=== PATIENT | female | born 1970 | race Caucasian/White ===

== ENCOUNTER 2017-05-04 15:08 | Inpatient (IN) ==
[2017-05-04] MEDS ORDERED: 0.9 % SODIUM CHLORIDE 1,000 ML IV ONE ×2 (15:37→17:34)
--- NOTE | 2017-05-04 15:41 | Emergency Department Note ---
Wound/Laceration HPI - General Chief Complaint: Wound/Laceration Stated Complaint: Wounds to bilateral feet Time Seen by Provider: 05/04/17 15:14 Source: patient Mode of arrival: wheelchair Limitations: no limitations - History of Present Illness HPI Narrative: 47-year-old female presents with wounds to bilateral ankles. She was sent over from wound care. She has had these wounds for 2 years and they will heal and then restart. She is on rheumatoid medications that suppress her immune system. She was sent over by Dr. Gonzales to be admitted and he wanted to do an MRI of her right foot and a surgical debridement. She denies fever chills. She states she has been feeling well. She states she cannot go for rheumatoid medications due to debilitating rheumatoid arthritis. She is not diabetic - Related Data Home Medications Medication Instructions Recorded Confirmed Diclofenac [Voltaren] 50 mg PO QIDP 02/02/16 05/04/17 Pregabalin [Lyrica] 75 mg PO BID 06/01/16 05/04/17 sulfaSALAzine [Sulfasalazine] 500 mg PO DAILY 06/01/16 05/04/17 HYDROcodone/APAP 10/325MG [[place] 10 mg PO Q4H PRN 08/03/16 05/04/17 10/325Mg] Previous Rx's Medication Instructions Recorded DULoxetine [Cymbalta] 30 mg PO BID capsule 03/10/16 Hydroxychloroquine [Plaquenil] 200 mg PO BID tablet 03/10/16 Allergies Allergy/AdvReac Type Severity Reaction Status Date / Time gentamicin [Gentamicin] Allergy Intermediate Rash Verified 05/04/17 15:14 meperidine [From Demerol] Allergy Intermediate Swelling Verified 05/04/17 15:14 of Lip/Tongue/Throat vancomycin Allergy Intermediate Hives Verified 05/04/17 15:14 morphine AdvReac Unknown Other Verified 05/04/17 15:14 Review of Systems All systems ED: reviewed and negative except as stated. Past Medical History - Past Medical History Medical history: Reports: arthritis Surgical history ED: Reports: no surgical history - Social History Alcohol use: Reports: None Physical Exam right medial ankle shows wound 8.7 cm by 6.5cm with a depth of .3cm left lateral ankle shows 3 lesions that are merging measuring 8.5cm by 4.4 cm with a width of .3cm left medial ankle shows a wound measuring 2.4cm by 2.5cm with a depth of .2cm. Serosanguinous fluid from all of the lesions. Tender to palpation. Normal cap refill distally. Right foot shows erythema distally - General Limitations: no limitations General appearance: alert, in no apparent distress - Head Head exam: atraumatic - Eye Eye exam: Present: normal appearance. Absent: conjunctival injection - Neck Neck exam: Present: normal inspection, full ROM - Chest Chest inspection: Present: normal inspection, symmetric chest wall rise - Respiratory Respiratory exam: Present: normal lung sounds bilaterally - Cardiovascular Cardiovascular exam: Present: regular rate, normal heart sounds - Abdominal Exam Abdominal exam: Present: soft, normal bowel sounds. Absent: tenderness - Neurological Exam Neurological exam: Present: alert, oriented X3 - Psychiatric Psychiatric exam: Present: normal affect, normal mood - Skin Skin exam: Present: warm, dry, intact Course Course Narrative: Dr. Sparks will admit and Dr. Gonzales will consult and do surgery. Vital Signs Temperature 98.2 F 05/04/17 15:08 Pulse Rate 84 05/04/17 15:08 Respiratory Rate 16 05/04/17 15:08 Blood Pressure 125/72 05/04/17 15:08 Pulse Oximetry (%) 96 05/04/17 15:08 Temperature 99.1 F H 05/04/17 17:52 Pulse Rate 84 05/04/17 15:08 Respiratory Rate 16 05/04/17 15:08 Blood Pressure 126/82 05/04/17 17:52 Pulse Oximetry (%) 95 05/04/17 17:52 Wound/Laceration - Lab Data Lab results reviewed: Yes I reviewed the patient's lab results. Result diagrams: 05/04/17 15:10 05/04/17 15:10 Lab Results 05/04/17 05/04/17 05/04/17 Range/Units 15:10 15:10 15:10 WBC 11.2 H (4.5-11.0) K/mcL RBC 5.09 (4.00-5.20) M/mcL Hgb 13.0 (12.0-15.0) g/dL Hct 40.0 (36.0-48.0) % MCV 78.6 L (80.0-100.0) fL MCH 25.5 L (26.0-34.0) pg MCHC 32.4 (31.0-36.0) g/dL RDW 17.3 H (11.5-14.5) % Plt Count 385 (140-440) K/mcL MPV 7.2 L (7.4-10.4) fL Total Counted 100 Seg Neutrophils % 69 (38-78) % Band Neutrophils % Not Reportable Lymphocytes % 26 (15-49) % Monocytes % (Manual) 4 (1-12) % Eosinophils % (Manual) 1 (0-7) % Platelet Estimate Normal (NORMAL) RBC Morphology Abnorm A (NORMAL) Microcytosis 1+ A (NONE SEEN) VBG Lactic Acid 1.2 (0.5-2.2) mmol/L Sodium 138 (133-145) mmol/L Potassium 4.0 (3.3-5.1) mmol/L Chloride 102 (96-108) mmol/L Carbon Dioxide 22 (22-30) mmol/L Anion Gap 14.0 (8-16) BUN 17 (6-20) mg/dl Creatinine 0.5 L (0.6-1.1) mg/dl GFR Calculation 114 Glucose 81 (70-105) mg/dL Calcium 9.5 (8.6-10.4) mg/dl Total Bilirubin < 0.2 (0.0-1.0) mg/dL AST 12 (0-37) U/l ALT 8 (0-40) U/l Alkaline Phosphatase 130 H (39-117) U/L C-Reactive Protein (0.0-0.8) mg/dl Total Protein 7.5 (5.9-8.4) gm/dL Albumin 3.9 (3.2-5.2) gm/dL Globulin 3.6 (2.2-3.7) gm/dL Albumin/Globulin Ratio 1.1 (1.0-2.3) 05/04/17 Range/Units 16:10 WBC (4.5-11.0) K/mcL RBC (4.00-5.20) M/mcL Hgb (12.0-15.0) g/dL Hct (36.0-48.0) % MCV (80.0-100.0) fL MCH (26.0-34.0) pg MCHC (31.0-36.0) g/dL RDW (11.5-14.5) % Plt Count (140-440) K/mcL MPV (7.4-10.4) fL Total Counted Seg Neutrophils % (38-78) % Band Neutrophils % Lymphocytes % (15-49) % Monocytes % (Manual) (1-12) % Eosinophils % (Manual) (0-7) % Platelet Estimate (NORMAL) RBC Morphology (NORMAL) Microcytosis (NONE SEEN) VBG Lactic Acid (0.5-2.2) mmol/L Sodium (133-145) mmol/L Potassium (3.3-5.1) mmol/L Chloride (96-108) mmol/L Carbon Dioxide (22-30) mmol/L Anion Gap (8-16) BUN (6-20) mg/dl Creatinine (0.6-1.1) mg/dl GFR Calculation Glucose (70-105) mg/dL Calcium (8.6-10.4) mg/dl Total Bilirubin (0.0-1.0) mg/dL AST (0-37) U/l ALT (0-40) U/l Alkaline Phosphatase (39-117) U/L C-Reactive Protein 1.5 H (0.0-0.8) mg/dl Total Protein (5.9-8.4) gm/dL Albumin (3.2-5.2) gm/dL Globulin (2.2-3.7) gm/dL Albumin/Globulin Ratio (1.0-2.3) - Radiology Data Radiology results reviewed: Yes I reviewed the patient's radiology results. No evidence of osteomyelitis on X-ray Disposition Pt seen by ANALYTICS CONSULTANT/PA only: Yes Clinical Impression: Wound infection Disposition: Xfer As Inpt ([facility]) Condition: Fair Referrals: Coco Morel MD [Primary Care Provider] -
[2017-05-04 16:38] LABS: Mean Cell Volume 78.6 fL (80.0-100.0); Mean Corpuscular HGB Conc 32.4 g/dL (31.0-36.0); Mean Corpuscular Hemoglobin 25.5 pg (26.0-34.0); Platelet Count 385 K/mcL (140-440); RBC 5.09 M/mcL (4.00-5.20); Red Cell Distribution Width 17.3 % (11.5-14.5)
[2017-05-04 16:58] LABS: ALT/SGPT 8 U/l (0-40); Albumin 3.9 gm/dL (3.2-5.2); Albumin/Globulin Ratio 1.1 (1.0-2.3); Alkaline Phosphatase 130 U/L (39-117); Blood Urea Nitrogen 17 mg/dl (6-20)
[2017-05-04 17:04] LABS: Eosinophils % (Manual) 1 % (0-7); Lymphocytes % 26 % (15-49); Monocytes % (Manual) 4 % (1-12); Platelet Estimate NORMAL (NORMAL); RBC Morphology ABNORM (NORMAL); Segmented Neutrophils % 69 % (38-78)
--- NOTE | 2017-05-04 17:11 | XRay Report ---
CLINICAL INFORMATION: Left ankle wound COMPARISON: None. FINDINGS: There is mild diffuse osteoporosis. No specific radiographic evidence of osteomyelitis. Ankle mortise is unremarkable. The talocalcaneal joint is quite narrowed - the possibility of talocalcaneal coalition not excluded. There is mild periarticular soft tissue swelling IMPRESSION: No radiographic evidence for osteomyelitis. Other chronic findings - as described Interpreted and Authenticated by: Felipe Eng 05/04/17
--- NOTE | 2017-05-04 17:13 | XRay Report ---
CLINICAL INFORMATION: Cellulitis evaluate for osteomyelitis COMPARISON: None. FINDINGS: There is no specific radiographic evidence for osteomyelitis. There is solid fusion between the medial cuneiform and navicular and also within the navicular and the cuboid. Mild hallux valgus and metatarsus abductus deformity is noted. There are hammertoe deformities of the second through fifth digits. Moderate degenerative change in the MTT and second through fifth interphalangeal joints. Mild diffuse soft tissue swelling noted particularly the forefoot and midfoot IMPRESSION: No significant radiographic evidence of osteomyelitis. Forefoot and midfoot soft tissue swelling may indicate cellulitis. Other chronic findings as described Interpreted and Authenticated by: Felipe Eng 05/04/17
[2017-05-04] MEDS ORDERED: HYDROmorphone 2 MG/ML SYRINGE IV PRN (17:16)
[2017-05-04] MEDS ORDERED: ONDANSETRON 4 MG/2 ML VIAL IV ONE (17:16)
--- NOTE | 2017-05-04 17:22 | XRay Report ---
CLINICAL INFORMATION: Right ankle evaluate for osteomyelitis COMPARISON: None. FINDINGS: There are no significant radiographic evidence of osteomyelitis or other focal osseous lesion. Mild degenerative changes noted in the ankle mortise and talocalcaneal joint. There is mild diffuse soft tissue swelling. Dystrophic calcification overlies the medial malleolus IMPRESSION: . No plain film evidence for osteomyelitis. Degenerative change Interpreted and Authenticated by: Felipe Eng 05/04/17
--- NOTE | 2017-05-04 18:53 | Internal Med History&Physical ---
Medical - H&P: [facility] Patient information: Note initiated : 05/04/17 at 6:50 pm Service Date, if different from initiated Date: [] Patient: Maria Luisa Torres a 47 y/o F admitted on for Wounds to bilateral feet. Chief Complaint: [] Chief complaint: nonhealing bilateral lower extremity wounds History of present illness: Ms. Torres is a 47 year old F who was referred from Dr. Will's clinic with non-healing bilateral ankle ulcers/cellulitis and swelling right more pronounced than left. Patient has had nonhealing ulceration over the last couple of years that has intermittently worsened despite regular wound care. she clearly denies recent trauma. During today's evaluation here was significant cellulitis/ulceration involving the right ankle and therefore patient was directed by wound care physician to be admitted under hospitalist service for antibioticsfurther imaging while she would undergo debridement and wound care management as per Dr. Will. Patient carries history of rheumatoid arthritis and is currently on Platinol/sulfasalazine. Initial workup in the ED was essentially unremarkable with white count at 11.3. mRI foot was ordered at the time of Examination patient is alert oriented. She as able to provide most of the history. Denies groin pain/ swelling. pain and swelling located around both ankles. She is able to bear weight. She denies fevers, shaking chills, diarrhea, dysuria or joint swelling. She denies recent medication changes. REVIEW OF SYSTEMS a 10 point system was performed and is negative except was discussed above Medical - H&P: PMH Medical history: anxiety disorder rheumatoid arthritis Nonhealing lower extremity wounds neuropathy Degenerative joint disease Medical - H&P: Meds Home Medications Medication Instructions Recorded Confirmed Type Diclofenac [Voltaren] 50 mg PO QIDP 02/02/16 05/04/17 History DULoxetine [Cymbalta] 30 mg PO BID capsule 03/10/16 05/04/17 Rx Hydroxychloroquine [Plaquenil] 200 mg PO BID tablet 03/10/16 05/04/17 Rx Pregabalin [Lyrica] 75 mg PO BID 06/01/16 05/04/17 History sulfaSALAzine [Sulfasalazine] 500 mg PO DAILY 06/01/16 05/04/17 History HYDROcodone/APAP 10/325MG [[place] 10 mg PO Q4H PRN 08/03/16 05/04/17 History 10/325Mg] Allergies Allergy/AdvReac Type Severity Reaction Status Date / Time gentamicin [Gentamicin] Allergy Intermediate Rash Verified 05/04/17 15:14 meperidine [From Demerol] Allergy Intermediate Swelling Verified 05/04/17 15:14 of Lip/Tongue/Throat vancomycin Allergy Intermediate Hives Verified 05/04/17 15:14 morphine AdvReac Unknown Other Verified 05/04/17 15:14 Medical - H&P: Exam - Constitutional Vitals: Temp Pulse Resp BP Pulse Ox 99.1 F H 84 16 126/82 95 05/04/17 17:52 05/04/17 15:08 05/04/17 15:08 05/04/17 17:52 05/04/17 17:52 General appearance: cooperative, obese Exam: pupils symmetric reactive oral cavity dry no ear discharge Head normocephalic atraumatic Neck no lymphadenopathy S1-S2 rate and rhythm No murmur chest clear to auscultation Abdomen soft nontender lower extremity examination bilateral lower extremity Ankle lesion including right medial and left medial and lateral Malleolus ulceration with purulent exudate /surrounding erythema and induration. Right greater than left skin no other suspicious lesion Psych alert cooperative neuro nonfocal on limited neuro exam Medical - H&P: Reslt - Labs CBC & Chem 7: 05/04/17 15:10 05/04/17 15:10 Labs: Short CBC 05/04/17 Range/Units 15:10 WBC 11.2 H (4.5-11.0) K/mcL Hgb 13.0 (12.0-15.0) g/dL Hct 40.0 (36.0-48.0) % Plt Count 385 (140-440) K/mcL BMP 05/04/17 15:10 Sodium 138 Potassium 4.0 Chloride 102 Carbon Dioxide 22 BUN 17 Creatinine 0.5 L Glucose 81 Calcium 9.5 Liver Function 05/04/17 Range/Units 15:10 Total Bilirubin < 0.2 (0.0-1.0) mg/dL AST 12 (0-37) U/l ALT 8 (0-40) U/l Alkaline Phosphatase 130 H (39-117) U/L Albumin 3.9 (3.2-5.2) gm/dL Medical - H&P: A/P (1) Diabetic ulcer of ankle Current visit: Yes Status: Acute * Non Helaing ulcer bilateral ankle/malleolus Rt>Left. Wound care consulted. Continue antibiotic coverage * right ankle cellulitis-ntibiotic coverage * history of rheumatoid arthritis continue Hydroxychloroquine/Sulfasalazine * Neuropathy continue Lyrica/[place] * pain management on as needed opioids * full code plan * Wound care consult * antibiotic coverage * mRI right footankle * pre-existing medical condition management as above
[2017-05-04] MEDS ORDERED: ACETAMINOPHEN 325 MG TABLET PO PRN (19:09)
[2017-05-04] MEDS ORDERED: POTASSIUM CHLORIDE 20 MEQ PACKET PO PRN (19:09)
[2017-05-04] MEDS ORDERED: ACETAMINOPHEN 1,000 MG/100 ML BOTTLE IV PRN (19:09)
[2017-05-04] MEDS ORDERED: ONDANSETRON 4 MG/2 ML VIAL IV PRN (19:09)
[2017-05-04] MEDS ORDERED: DEXTROSE 50% 50 ML VIAL IV PRN (19:09)
[2017-05-04] MEDS ORDERED: DEXTROSE 31 GM ORAL.SUSP PO PRN (19:09)
[2017-05-04] MEDS ORDERED: MAGNESIUM SULFATE 2 GM/50 ML BAG IV PRN (19:09)
[2017-05-04] MEDS ORDERED: traZODone HCL 50 MG TABLET PO PRN (19:09)
[2017-05-04] MEDS ORDERED: MAGNESIUM HYDROXIDE 30 ML ORAL.SUSP PO PRN (19:09)
[2017-05-04] MEDS: 0.9 % SODIUM CHLORIDE 1,000 ML IV SCH (19:10)
[2017-05-04] MEDS ORDERED: PIPERACILLIN SODIUM/TAZOBACTAM 3.375 GM VIAL IV ONE (22:52)
[2017-05-04] MEDS: PIPERACILLIN SODIUM/TAZOBACTAM 3.375 GM in DEXTROSE 5% IN WATER 50 ML IV SCH (22:52)
[2017-05-04] MEDS: HYDROcodone/APAP 5/325MG TABLET PO PRN (22:55)
[2017-05-04] MEDS: SENNOSIDES/DOCUSATE SODIUM 1 TAB TABLET PO SCH (22:55)
[2017-05-04] MEDS: HYDROXYCHLOROQUINE 200 MG TABLET PO SCH (22:57)
[2017-05-04] MEDS: PREGABALIN 75 MG CAPSULE PO SCH (22:57)
[2017-05-04] MEDS: INSULIN LISPRO 1 UNIT/0.01 ML UNIT SQ SCH (22:57)
[2017-05-04] MEDS: 0.9 % SODIUM CHLORIDE 10 ML SYRINGE IV SCH (22:58)
[2017-05-04] MEDS: DOCUSATE SODIUM 100 MG CAPSULE PO SCH (23:04)
[2017-05-04] MEDS: DULoxetine 30 MG CAPSULE PO SCH (23:04)
[2017-05-04] MEDS: HEPARIN 5,000 UNIT/ML VIAL SQ SCH (23:04)
[2017-05-05] MEDS: HYDROmorphone 2 MG/ML SYRINGE IV PRN ×6 (00:21→19:50)
[2017-05-05] MEDS: PIPERACILLIN SODIUM/TAZOBACTAM 3.375 GM in DEXTROSE 5% IN WATER 50 ML IV SCH ×4 (02:27→19:52)
[2017-05-05] MEDS: 0.9 % SODIUM CHLORIDE 10 ML SYRINGE IV SCH ×3 (06:00→21:45)
[2017-05-05 06:34] LABS: Mean Cell Volume 79.6 fL (80.0-100.0); Mean Corpuscular HGB Conc 32.6 g/dL (31.0-36.0); Platelet Count 361 K/mcL (140-440); RBC 4.66 M/mcL (4.00-5.20); Red Cell Distribution Width 17.2 % (11.5-14.5)
[2017-05-05 07:25] LABS: ALT/SGPT 7 U/l (0-40); Albumin 3.6 gm/dL (3.2-5.2); Albumin/Globulin Ratio 1.1 (1.0-2.3); Alkaline Phosphatase 118 U/L (39-117); Bilirubin,Direct < 0.2 mg/dL (0.0-0.3); Blood Urea Nitrogen 16 mg/dl (6-20); Gamma Glutamyl Transpeptidase 19 U/L (5-36); Magnesium 1.8 mg/dL (1.6-2.5); Uric Acid 2.6 mg/dL (2.5-8.0)
[2017-05-05 07:30] LABS: Anisocytosis 1+ (NONE SEEN); Band Neutrophils % 1 % (0-10); Eosinophils % (Manual) 4 % (0-7); Hypochromasia 1+ (NONE SEEN); Lymphocytes % 32 % (15-49); Monocytes % (Manual) 8 % (1-12); Platelet Estimate NORMAL (NORMAL); RBC Morphology ABNORM (NORMAL); Segmented Neutrophils % 55 % (38-78)
[2017-05-05] MEDS: INSULIN LISPRO 1 UNIT/0.01 ML UNIT SQ SCH ×2 (09:17→14:23)
[2017-05-05] MEDS ORDERED: LORazepam 2 MG/ML VIAL IV ONE (12:21)
--- NOTE | 2017-05-05 12:42 | Internal Med Progress Note ---
Medical - PN: Subj Patient information: Note initiated : 05/05/17 at 12:39 pm Service Date, if different from initiated Date: [] Patient: Maria Luisa Torres a 47 y/o F admitted on 05/04/17 for Non-Healing Ulcer Bilateral Ankle. Chief Complaint: [] Interval history: 05/04-Ms. Torres is a 47 year old F who was referred from Dr. Will's clinic with non-healing bilateral ankle ulcers/cellulitis and swelling right more pronounced than left. Patient has had nonhealing ulceration over the last couple of years that has intermittently worsened despite regular wound care. she clearly denies recent trauma. During today's evaluation here was significant cellulitis/ulceration involving the right ankle and therefore patient was directed by wound care physician to be admitted under hospitalist service for antibioticsfurther imaging while she would undergo debridement and wound care management as per Dr. Will. Patient carries history of rheumatoid arthritis and is currently on Platinol/sulfasalazine. Initial workup in the ED was essentially unremarkable with white count at 11.3. mRI foot was ordered at the time of Examination patient is alert oriented. She as able to provide most of the history. Denies groin pain/ swelling. pain and swelling located around both ankles. She is able to bear weight. She denies fevers, shaking chills, diarrhea, dysuria or joint swelling. She denies recent medication changes. 05/05- atient doing well. No overnight events. No concerns expressed per staff all per patient. No fever chills or d pain. wound management ongoing. Debridement today. On antibiotic coverage. Denies. on regular diet. - Constitutional Vitals: Vital Signs Temp Pulse Resp BP Pulse Ox 97.5 F 69 16 126/74 94 05/05/17 08:00 05/05/17 07:42 05/05/17 08:00 05/05/17 08:00 05/05/17 08:00 Period Temp Pulse Resp BP Sys/[place] Pulse Ox Last 24 Hr 97.0 F-97.8 F 69-70 16-18 120-131/68-77 94-98 Intake and Output 05/04/17 05/05/17 05/05/17 21:59 05:59 13:59 Intake Total 350 / 350 Output Total 452 / 452 Balance -102 / -102 Weight 201 lb 3.2 oz Intake & Output: Intake & Output 05/04/17 05/05/17 05/05/17 21:59 05:59 13:59 Intake Total 350 / 350 Output Total 452 / 452 Balance -102 / -102 Weight 201 lb 3.2 oz Intake: IV 50 / 50 Zosyn 3.375 gm In 50 / 50 Dextrose 5% in Water 50 ml @ 100 mls/hr IV Q6H [facility] Rx#:[id number] Oral 300 / 300 Output: Void Amount 450 / 450 # of times incontinent of 2 / 2 urine General appearance: cooperative, no acute distress Exam: lert and oriented nonlabored breathing Nondistended abdomen No pallor Bilateral lower extremity ankle cellulitis/ulceration wrapped in sterile dressing Medical - PN: Obj Da - Labs CBC & Chem 7: 05/05/17 05:25 05/05/17 05:25 Labs: Abnormal Lab Results 05/05/17 05/05/17 05:25 05:25 MCV 79.6 L RDW 17.2 H MPV 7.1 L RBC Morphology Abnorm A Hypochromasia 1+ A Anisocytosis 1+ A Microcytosis 1+ A Alkaline Phosphatase 118 H Meds: Medications Acetaminophen (Tylenol) 650 mg PO Q4-6HP PRN PRN Reason: PAIN/FEVER > 101 Hydrocodone Bitart/Acetaminophen ([place] 5/325mg) 0 tab PO Q4HP PRN PRN Reason: Pain Last Admin: 05/04/17 22:55 Dose: 2 tab Dextrose (Dextrose 50%) 0 ml IV UD PRN PRN Reason: Hypoglycemia Diagnostic Test (Pha) (Accu-Chek) 1 each FS ACHS [facility] Last Admin: 05/05/17 07:09 Dose: 1 each Docusate Sodium (Colace) 100 mg PO BID [facility] Last Admin: 05/04/17 23:04 Dose: 100 mg Duloxetine HCl (Cymbalta) 30 mg PO BID [facility] Last Admin: 05/04/17 23:04 Dose: 30 mg Glucose (Insta-Glucose) 15 gm PO PRN PRN PRN Reason: Hypoglycemia Heparin Sodium (Porcine) (Heparin) 5,000 unit SQ Q12 [facility] Last Admin: 05/04/17 23:04 Dose: 5,000 unit Hydromorphone HCl (Dilaudid) 0 mg IV Q4HP PRN PRN Reason: Pain Last Admin: 05/05/17 11:03 Dose: 0.5 mg Hydroxychloroquine Sulfate (Plaquenil) 200 mg PO BID [facility] Last Admin: 05/04/17 22:57 Dose: 200 mg Magnesium Sulfate (Magnesium Sulfate) 2 gm in 50 mls @ 50 mls/hr IV UD PRN PRN Reason: MG = or < 1.7 Acetaminophen (Ofirmev) 1,000 mg in 100 mls @ 200 mls/hr IV Q6HP PRN PRN Reason: PAIN/FEVER > 101 Piperacillin Sod/Tazobactam (Sod 3.375 gm/ Dextrose) 50 mls @ 100 mls/hr IV Q6H [facility] Last Admin: 05/05/17 06:32 Dose: 100 mls/hr Sodium Chloride (Sodium Chloride 0.9%) 1,000 mls @ 20 mls/hr IV .Q24H [facility] Last Admin: 05/04/17 19:10 Dose: 20 mls/hr Insulin Human Lispro (Humalog) 0 unit SQ ACHS JANE PRN Reason: Protocol Last Admin: 05/05/17 09:17 Dose: Not Given Iron Carb/Multivit/User Experience Lead/Folic Acid (Multivitamin W/Minerals) 1 tab PO DAILY [facility] Magnesium Hydroxide (Milk Of Magnesia) 30 ml PO HSP PRN PRN Reason: Constipation Ondansetron HCl (Zofran) 4 mg IV Q4-6HP PRN PRN Reason: Nausea And Vomiting Potassium Chloride (Klor-Con) 40 meq PO DAILYP PRN PRN Reason: K+ < 3.5 Pregabalin (Lyrica) 75 mg PO BID [facility] Last Admin: 05/04/17 22:57 Dose: 75 mg Senna/Docusate Sodium (Senna Plus Tablet) 1 tab PO HS [facility] Last Admin: 05/04/17 22:55 Dose: 1 tab Sodium Chloride (Saline Flush) 10 ml IV Q8 [facility] Last Admin: 05/05/17 06:00 Dose: Not Given Sulfasalazine (Sulfasalazine) 500 mg PO DAILY [facility] Trazodone HCl (Desyrel) 50 mg PO HSP PRN PRN Reason: Insomnia Medical - PN: A/P - Time Spent With Patient Total time spent is greater than 50% in coordination of care (as documented) at patient's floor/unit and/or counseling patient: 25 - 35 minutes (1) Diabetic ulcer of ankle Status: Acute Assessment and plan: * Non Helaing bilateral ankle/malleolus ulceration Rt>Left. Wound care managing. on antibiotic coverage * right ankle cellulitis- MRI bilateral ankle to rule out osteoporosis. Continue antibiotic coverage * history of rheumatoid arthritis continue Hydroxychloroquine/Sulfasalazine * Neuropathy continue Lyrica/cymbalta * pain management on as needed opioids * full code plan * Wound care per Dr. Will * MRI bilateral lower ankle * continue antibiotic coverage * pre-existing medical condition management as above Current Visit: Yes Medical - PN: Qual - VTE Deep Vein Thrombosis/Pulmonary Embolism Present on Admission: No
[2017-05-05] MEDS: sulfaSALAzine 500 MG TABLET PO SCH (13:51)
[2017-05-05] MEDS: PREGABALIN 75 MG CAPSULE PO SCH ×2 (13:51→21:44)
[2017-05-05] MEDS: DOCUSATE SODIUM 100 MG CAPSULE PO SCH ×2 (13:51→21:44)
[2017-05-05] MEDS: HYDROXYCHLOROQUINE 200 MG TABLET PO SCH ×2 (13:51→21:45)
[2017-05-05] MEDS: DULoxetine 30 MG CAPSULE PO SCH ×2 (13:51→21:44)
[2017-05-05] MEDS: MULTIVIT,THER IRON,CA,FA & MIN 1 TABLET PO SCH (13:51)
[2017-05-05] MEDS: HEPARIN 5,000 UNIT/ML VIAL SQ SCH ×2 (14:23→21:45)
--- NOTE | 2017-05-05 14:41 | Magnetic Resonance Report ---
CLINICAL INFORMATION: History of rheumatoid arthritis on steroids. Nonhealing wound TECHNIQUE: Axial T1 T1, post Magnevist fat saturation T2 proton density, coronal T1 pre and post Magnevist T2 proton density STIR and sagittal proton density post Magnevist images were acquired. FINDINGS: The marrow signal is entirely unremarkable throughout the ankle and hindfoot. There is no evidence of osteomyelitis. Joint spaces are normal with alignment without arthritic change. Tendons and sheaths are normal. There is moderate cellulitic changes in the subcutaneous fat throughout the ankle and hindfoot. There is no soft tissue abscess and no involvement of the muscular compartments. IMPRESSION: Moderate cellulitis show the ankle and hindfoot. No evidence of abscess, osteomyelitis or arthritis. Interpreted and Authenticated by: Felipe Eng 05/05/17
[2017-05-05] MEDS ORDERED: INSULIN LISPRO 1 UNIT/0.01 ML UNIT SQ SCH (14:48)
--- NOTE | 2017-05-05 14:50 | Magnetic Resonance Report ---
CLINICAL INFORMATION: History of rheumatoid arthritis on steroids with nonhealing wound to evaluate for abscess and osteomyelitis TECHNIQUE: Axial T1, T1 post Magnevist T2 proton density coronal T1 post Magnevist (STIR sagittal proton density post Magnevist images were acquired FINDINGS: The marrow signal is entirely unremarkable throughout the ankle and hindfoot without evidence of osteomyelitis. Joint spaces are normal with alignment without evidence of inflammatory arthritis. There is a split tear of the peroneal longus tendon. The peroneal brevis and other tendons and sheaths are unremarkable. There is moderate cellulitis predominantly in the medial subcutaneous soft tissues the ankle and hindfoot. No evidence of abscess. No definite involvement of the muscle and fascial planes. IMPRESSION: Cellulitis within the ankle and hindfoot predominantly medially. There is no evidence of soft tissue abscess, myositis/fasciitis and no evidence of osteomyelitis. Split tear of the peroneus longus tendon is likely chronic Interpreted and Authenticated by: Felipe Eng 05/05/17
--- NOTE | 2017-05-05 15:32 | General Surgery Consult Note ---
History of Present Illness Patient information: Note initiated : 05/05/17 at 3:21 pm Service Date, if different from initiated Date: [] Patient: Maria Luisa Torres 47 y/o F admitted on 05/04/17 for Non-Healing Ulcer Bilateral Ankle. Chief Complaint: [] Consult date: 05/05/17 Reason for consult: other (Cellulitis both legs Infected wounds chronic VLU: R > L lower half) Requesting physician: Jasper Braxton History of present illness: Patient well known to staff at [facility] and Wound Center / [facility]. 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 Past h/o refractory rheumatoid arthritis and treatment with immunosuppressants and steroids. She was evaluated in wound clinic and noted to have significant interval changes , with SEPSIS due to csssi and cellulitis both lower legs and right ankle and plantar foot, with inability to bear weight on right foot. Patient had fever of over 102 F, Chills and foul drainage from the wounds, especially large VLU right medial ankle, covered with thick yellow / green slough. She was sent to ER for evaluation and management. Started on local wound care and IV antibiotics. Today, she had MRI of both ankles and feet and lower legs. I discussed findings with Dr. Henry Radiology. There is extensive soft tissue cellulitis especially right foot and ankle area. NO OSTEO / NO BONE OR JOINT INVOLVEMENT. Medications and Allergies Home Medications Medication Instructions Recorded Confirmed Type Diclofenac [Voltaren] 50 mg PO QIDP 02/02/16 05/04/17 History DULoxetine [Cymbalta] 30 mg PO BID capsule 03/10/16 05/04/17 Rx Hydroxychloroquine [Plaquenil] 200 mg PO BID tablet 03/10/16 05/04/17 Rx Pregabalin [Lyrica] 75 mg PO BID 06/01/16 05/04/17 History sulfaSALAzine [Sulfasalazine] 500 mg PO DAILY 06/01/16 05/04/17 History HYDROcodone/APAP 10/325MG [[place] 10 mg PO Q4H PRN 08/03/16 05/04/17 History 10/325Mg] Allergies Allergy/AdvReac Type Severity Reaction Status Date / Time gentamicin [Gentamicin] Allergy Intermediate Rash Verified 05/04/17 15:14 meperidine [From Demerol] Allergy Intermediate Swelling Verified 05/04/17 15:14 of Lip/Tongue/Throat vancomycin Allergy Intermediate Hives Verified 05/04/17 15:14 morphine AdvReac Unknown Other Verified 05/04/17 15:14 Exam Temp Pulse Resp BP Pulse Ox 97.5 F 69 16 126/74 94 05/05/17 08:00 05/05/17 07:42 05/05/17 08:00 05/05/17 08:00 05/05/17 08:00 - General physical appearance well developed, well nourished, no distress, moderate distress, chronically ill - Eyes PERRL, normal ocular movement - ENT normal pinna, normal nares, normal mucosa, no congestion, other (edentolous) - Head Head exam IM: Present: atraumatic, normal inspection, normocephalic - Neck no masses, no bruits, trachea midline, no venous distension - Cardiovascular Cardiovascular exam IM: Present: normal rate and rhythm - Respiratory normal expansion, normal respiratory effort, clear to auscultation - Abdomen Abdomen: Present: soft, non tender, bowel sounds - Integumentary Present: other (See HPI above Cellulitis both lower legs, infected necrotic slough VLU right . left, foul odor) - Neurologic Present: normal coordination, normal sensation - Musculoskeletal Present: normal gait, other (Currently NWB right foot and ankle. ) - Psychiatric Present: oriented to time, oriented to person, oriented to place, speech is normal, memory intact Results - Labs 05/05/17 05:25 05/05/17 05:25 Abnormal lab results 05/05/17 05/05/17 Range/Units 05:25 05:25 MCV 79.6 L (80.0-100.0) fL RDW 17.2 H (11.5-14.5) % MPV 7.1 L (7.4-10.4) fL RBC Morphology Abnorm A (NORMAL) Hypochromasia 1+ A (NONE SEEN) Anisocytosis 1+ A (NONE SEEN) Microcytosis 1+ A (NONE SEEN) Alkaline Phosphatase 118 H (39-117) U/L Diabetes panel 05/05/17 Range/Units 05:25 Sodium 139 (133-145) mmol/L Potassium 3.7 (3.3-5.1) mmol/L Chloride 103 (96-108) mmol/L Carbon Dioxide 22 (22-30) mmol/L BUN 16 (6-20) mg/dl Creatinine 0.6 (0.6-1.1) mg/dl Glucose 82 (70-105) mg/dL Calcium 9.1 (8.6-10.4) mg/dl AST 11 (0-37) U/l ALT 7 (0-40) U/l Alkaline Phosphatase 118 H (39-117) U/L Total Protein 6.8 (5.9-8.4) gm/dL Albumin 3.6 (3.2-5.2) gm/dL Triglycerides 148 (<150) mg/dl Calcium panel 05/05/17 Range/Units 05:25 Calcium 9.1 (8.6-10.4) mg/dl Phosphorus 3.4 (2.7-4.5) mg/dL Albumin 3.6 (3.2-5.2) gm/dL Pituitary panel 05/05/17 Range/Units 05:25 Sodium 139 (133-145) mmol/L Potassium 3.7 (3.3-5.1) mmol/L Chloride 103 (96-108) mmol/L Carbon Dioxide 22 (22-30) mmol/L BUN 16 (6-20) mg/dl Creatinine 0.6 (0.6-1.1) mg/dl Glucose 82 (70-105) mg/dL Calcium 9.1 (8.6-10.4) mg/dl Adrenal panel 05/05/17 Range/Units 05:25 Sodium 139 (133-145) mmol/L Potassium 3.7 (3.3-5.1) mmol/L Chloride 103 (96-108) mmol/L Carbon Dioxide 22 (22-30) mmol/L BUN 16 (6-20) mg/dl Creatinine 0.6 (0.6-1.1) mg/dl Glucose 82 (70-105) mg/dL Calcium 9.1 (8.6-10.4) mg/dl Total Bilirubin 0.2 (0.0-1.0) mg/dL AST 11 (0-37) U/l ALT 7 (0-40) U/l Alkaline Phosphatase 118 H (39-117) U/L Total Protein 6.8 (5.9-8.4) gm/dL Albumin 3.6 (3.2-5.2) gm/dL All other labs normal. Assessment and Plan (1) Sepsis affecting skin SPOKE AT LENGTH with patient, and nursing staff. Indication for surgery , risk, benefits, complications discussed. All questions answered. Patient agrees to proceed with surgery as scheduled. Status: Acute Priority: High Comment: FOr OR debridement and deep tissue cultures and biopsies. (2) Wound infection Status: Acute Priority: High Comment: OR debridement, VERSAJET lavage and irrigation. (3) Arthritis, rheumatoid Status: Chronic Priority: Medium Qualifiers: Rheumatoid arthritis location: foot Laterality: bilateral (4) Depression Status: Acute
[2017-05-05 16:39] LABS: HCG,Serum NEGATIVE <10.0 mIU/Ml (<10)
[2017-05-05 17:56] LABS: Appearance,Urine HAZY; Bilirubin,Urine NEG (NEG); Color,Urine YELLOW; Glucose,Urine (UA) NEGATIVE (NEG); Leukocyte Esterase,Urine NEG /uL (NEG); Nitrate,Urine NEG (NEG); Protein,Urine NEG (NEG); Specific Gravity,Urine 1.011 (1.000-1.035); Urine Blood NEG mg/dL (<0.03); Urobilinogen,Urine NEG (NEG)
[2017-05-05] MEDS ORDERED: ONDANSETRON 4 MG/2 ML VIAL IV ONE (18:10)
[2017-05-05] MEDS ORDERED: KETAMINE 100 MG/ML ML IV ONE (18:10)
[2017-05-05] MEDS ORDERED: LIDOCAINE HCL/PF 100 MG/5 ML SYRINGE IV ONE (18:10)
[2017-05-05] MEDS ORDERED: GLYCOPYRROLATE 0.2 MG/ML VIAL IV ONE (18:10)
[2017-05-05] MEDS ORDERED: fentaNYL 250 MCG/5 ML VIAL IV ONE (18:10)
[2017-05-05] MEDS ORDERED: DEXAMETHASONE 10 MG/ML VIAL IV ONE (18:10)
[2017-05-05] MEDS ORDERED: PROPOFOL 200 MG/20 ML VIAL IV ONE (18:10)
[2017-05-05] MEDS ORDERED: MIDAZOLAM 2 MG/2 ML VIAL IV ONE (18:10)
[2017-05-05] MEDS ORDERED: GENTAMICIN SULFATE 80 MG/2 ML VIAL IR ONE (18:30)
[2017-05-05] MEDS ORDERED: diphenhydrAMINE 50 MG/ML VIAL IV PRN (18:32)
[2017-05-05] MEDS ORDERED: ONDANSETRON 4 MG/2 ML VIAL IV PRN (18:32)
[2017-05-05] MEDS ORDERED: ePHEDrine 50 MG/ML AMPUL IV PRN (18:32)
[2017-05-05] MEDS ORDERED: IPRATROPIUM/ALBUTEROL 3 ML AMPUL.NEB NEB PRN (18:32)
[2017-05-05] MEDS ORDERED: METHOCARBAMOL 1,000 MG/10 ML VIAL IV PRN (18:32)
[2017-05-05] MEDS ORDERED: FLUMAZENIL 0.1 MG/ML ML IV PRN (18:32)
[2017-05-05] MEDS ORDERED: LACTATED RINGERS 250 ML IV PRN (18:32)
[2017-05-05] MEDS ORDERED: BENZOCAINE/MENTHOL 1 LOZENGE PO PRN (18:32)
[2017-05-05] MEDS ORDERED: fentaNYL 100 MCG/2 ML VIAL IV PRN (18:32)
[2017-05-05] MEDS ORDERED: NALOXONE HCL 0.4 MG/ML VIAL IV PRN (18:32)
[2017-05-05] MEDS ORDERED: LACTATED RINGERS 1,000 ML IV SCH (18:45)
[2017-05-05] MEDS ORDERED: CLINDAMYCIN 600 MG/4 ML VIAL IR ONE (18:51)
[2017-05-05] MEDS ORDERED: BACITRACIN 50,000 UNIT VIAL IR ONE (18:51)
--- NOTE | 2017-05-05 19:18 | Brief Operative Note ---
Date of procedure: 05/05/17 Pre-op diagnosis: Sepsis: Infected leg ulcers bilateral with cellulitis. Post-op diagnosis: same Procedure: Surgical debridement and pulse lavage irrigation and deep tissue cultures Grafts/Implants: No Anesthesia: GLMA Findings: Right medial ankle wound VLU 9 x 5 x0.5 CM Left lateral proximal wound Lower half 5 x3 x0.5 CM Left lateral distal wound Lower half 4 x 2.5 x 0.5 CM Complications: none Surgeon: Zach Will Estimated blood loss (cc): 20 Specimens Removed/Pathology: other Condition: stable Disposition: floor (Procedure well tolerated.)
[2017-05-05] MEDS ORDERED: diphenhydrAMINE 25 MG CAPSULE PO PRN (19:30)
[2017-05-05] MEDS ORDERED: diphenhydrAMINE 50 MG/ML VIAL ONE (19:48)
[2017-05-05] MEDS: 0.9 % SODIUM CHLORIDE 1,000 ML IV SCH (20:00)
[2017-05-05] MEDS: SENNOSIDES/DOCUSATE SODIUM 1 TAB TABLET PO SCH (21:44)
[2017-05-06] MEDS: PIPERACILLIN SODIUM/TAZOBACTAM 3.375 GM in DEXTROSE 5% IN WATER 50 ML IV SCH ×4 (00:32→17:36)
[2017-05-06 06:17] LABS: Mean Cell Volume 78.4 fL (80.0-100.0); Mean Corpuscular HGB Conc 32.5 g/dL (31.0-36.0); Mean Corpuscular Hemoglobin 25.5 pg (26.0-34.0); Platelet Count 363 K/mcL (140-440); RBC 5.02 M/mcL (4.00-5.20); Red Cell Distribution Width 17.3 % (11.5-14.5)
[2017-05-06] MEDS: 0.9 % SODIUM CHLORIDE 10 ML SYRINGE IV SCH ×3 (06:19→20:44)
[2017-05-06 06:56] LABS: ALT/SGPT 7 U/l (0-40); Albumin 3.5 gm/dL (3.2-5.2); Alkaline Phosphatase 120 U/L (39-117); Bilirubin,Direct < 0.2 mg/dL (0.0-0.3); Blood Urea Nitrogen 15 mg/dl (6-20); Gamma Glutamyl Transpeptidase 28 U/L (5-36); Uric Acid 2.1 mg/dL (2.5-8.0)
[2017-05-06 07:30] LABS: Anisocytosis 1+ (NONE SEEN); Hypochromasia 1+ (NONE SEEN); Lymphocytes % 9 % (15-49); Monocytes % (Manual) 3 % (1-12); Platelet Estimate NORMAL (NORMAL); RBC Morphology ABNORM (NORMAL); Segmented Neutrophils % 88 % (38-78)
[2017-05-06] MEDS: MULTIVIT,THER IRON,CA,FA & MIN 1 TABLET PO SCH (08:59)
[2017-05-06] MEDS: PREGABALIN 75 MG CAPSULE PO SCH ×2 (08:59→20:43)
[2017-05-06] MEDS: DULoxetine 30 MG CAPSULE PO SCH ×2 (08:59→20:43)
[2017-05-06] MEDS: sulfaSALAzine 500 MG TABLET PO SCH (09:00)
[2017-05-06] MEDS: HEPARIN 5,000 UNIT/ML VIAL SQ SCH ×2 (09:00→20:43)
[2017-05-06] MEDS: DOCUSATE SODIUM 100 MG CAPSULE PO SCH ×2 (09:00→20:44)
[2017-05-06] MEDS: HYDROXYCHLOROQUINE 200 MG TABLET PO SCH ×2 (09:00→20:43)
[2017-05-06] MEDS: HYDROcodone/APAP 5/325MG TABLET PO PRN ×4 (09:05→20:44)
--- NOTE | 2017-05-06 12:22 | Internal Med Progress Note ---
Medical - PN: Subj Patient information: Note initiated : 05/06/17 at 12:20 pm Service Date, if different from initiated Date: [] Patient: Maria Luisa Torres a 47 y/o F admitted on 05/04/17 for Non-Healing Ulcer Bilateral Ankle. Chief Complaint: [] Interval history: 05/04-Ms. Torres is a 47 year old F who was referred from Dr. Will's clinic with non-healing bilateral ankle ulcers/cellulitis and swelling right more pronounced than left. Patient has had nonhealing ulceration over the last couple of years that has intermittently worsened despite regular wound care. she clearly denies recent trauma. During today's evaluation here was significant cellulitis/ulceration involving the right ankle and therefore patient was directed by wound care physician to be admitted under hospitalist service for antibioticsfurther imaging while she would undergo debridement and wound care management as per Dr. Will. Patient carries history of rheumatoid arthritis and is currently on Platinol/sulfasalazine. Initial workup in the ED was essentially unremarkable with white count at 11.3. mRI foot was ordered at the time of Examination patient is alert oriented. She as able to provide most of the history. Denies groin pain/ swelling. pain and swelling located around both ankles. She is able to bear weight. She denies fevers, shaking chills, diarrhea, dysuria or joint swelling. She denies recent medication changes. 05/05- atient doing well. No overnight events. No concerns expressed per staff all per patient. No fever chills or d pain. wound management ongoing. Debridement today. On antibiotic coverage. Denies. on regular diet. 05/06: Pt seen examined, no acute overnight events, some soreness in her legs, but otherwise no acute issues, tolerating po diet well, Plan of care discussed with Dr Prado who believes patient will need to be here throught the weekend to early next week Pertinent ROS: Denies headache, dizziness Denies chest pain, palpitations Denies cough or shortness of breath Denies abdominal pain, nausea or vomiting. - Constitutional Vitals: Vital Signs Temp Pulse Resp BP Pulse Ox 97.6 F 76 16 120/61 97 05/06/17 11:21 05/06/17 06:18 05/06/17 11:21 05/06/17 11:21 05/06/17 11:21 Period Temp Pulse Resp BP Sys/[place] Pulse Ox Last 24 Hr 96.5 F-99.2 F 67-89 14-20 115-206/61-90 86-100 Intake and Output 05/05/17 05/06/17 05/06/17 21:59 05:59 13:59 Intake Total 597 / 597 50 / 50 120 / 120 Output Total 300 / 300 3 / 3 Balance 297 / 297 47 / 47 119 / 119 Weight 162 lb 9.6 oz Intake & Output: Intake & Output 05/05/17 05/06/17 05/06/17 21:59 05:59 13:59 Intake Total 597 / 597 50 / 50 120 / 120 Output Total 300 / 300 3 Balance 297 / 297 47 / 47 119 / 119 Weight 162 lb 9.6 oz Intake: IV 597 / 597 50 / 50 Sodium Chloride 0.9% 1, 497 / 497 000 ml @ 20 mls/hr IV . Q24H JANE Rx#:[id number] Zosyn 3.375 gm In 100 / 100 50 / 50 Dextrose 5% in Water 50 ml @ 100 mls/hr IV Q6H JANE Rx#:[id number] Oral 120 / 120 Output: Void Amount 300 / 300 # of times incontinent of urine Other: Meal Breakfast Percent of Meal Consumed npo 100% Feeding Ability Independent # Voids 1 Exam: Constitutional; Afebrile, cooperative, alert, not in distress. Eyes- No icterus, , No periorbital swelling Ears- Ext ear normal, hearing normal to conversation. Neck- Midline trachea, supple Respiratory system: Air Entry equal on both sides, No crackles or wheezing, no rhonchi. CVS- Rate rhythm regular, S1,S2 heard, no gallop, no rub. Abdomen- Soft nontender abdomen, no organomegaly, no tenderness, no guarding or rigidity, [employer]- AOOx3, moving all extremities, no gross focal deficit noted. Medical - PN: Obj Da - Labs CBC & Chem 7: 05/06/17 04:45 05/06/17 04:45 Labs: Abnormal Lab Results 05/06/17 05/06/17 05/05/17 04:45 04:45 05:25 MCV 78.4 L MCH 25.5 L RDW 17.3 H MPV Seg Neutrophils % 88 H Lymphocytes % 9 L RBC Morphology Abnorm A Hypochromasia 1+ A Anisocytosis 1+ A Microcytosis 1+ A Creatinine 0.5 L Glucose 135 H Uric Acid 2.1 L Alkaline Phosphatase 120 H 118 H 05/05/17 05:25 MCV 79.6 L MCH RDW 17.2 H MPV 7.1 L Seg Neutrophils % Lymphocytes % RBC Morphology Abnorm A Hypochromasia 1+ A Anisocytosis 1+ A Microcytosis 1+ A Creatinine Glucose Uric Acid Alkaline Phosphatase Meds: Medications Acetaminophen (Tylenol) 650 mg PO Q4-6HP PRN PRN Reason: PAIN/FEVER > 101 Hydrocodone Bitart/Acetaminophen ([place] 5/325mg) 0 tab PO Q4HP PRN PRN Reason: Pain Last Admin: 05/06/17 10:19 Dose: 1 tab Dextrose (Dextrose 50%) 0 ml IV UD PRN PRN Reason: Hypoglycemia Diphenhydramine HCl (Benadryl) 25 mg PO Q6HP PRN PRN Reason: Allergic Symptoms Docusate Sodium (Colace) 100 mg PO BID [facility] Last Admin: 05/06/17 09:00 Dose: Not Given Duloxetine HCl (Cymbalta) 30 mg PO BID [facility] Last Admin: 05/06/17 08:59 Dose: 30 mg Glucose (Insta-Glucose) 15 gm PO PRN PRN PRN Reason: Hypoglycemia Heparin Sodium (Porcine) (Heparin) 5,000 unit SQ Q12 [facility] Last Admin: 05/06/17 09:00 Dose: 5,000 unit Hydromorphone HCl (Dilaudid) 0 mg IV Q4HP PRN PRN Reason: Pain Last Admin: 05/05/17 19:50 Dose: 0.5 mg Hydroxychloroquine Sulfate (Plaquenil) 200 mg PO BID [facility] Last Admin: 05/06/17 09:00 Dose: 200 mg Magnesium Sulfate (Magnesium Sulfate) 2 gm in 50 mls @ 50 mls/hr IV UD PRN PRN Reason: MG = or < 1.7 Acetaminophen (Ofirmev) 1,000 mg in 100 mls @ 200 mls/hr IV Q6HP PRN PRN Reason: PAIN/FEVER > 101 Piperacillin Sod/Tazobactam (Sod 3.375 gm/ Dextrose) 50 mls @ 100 mls/hr IV Q6H [facility] Last Admin: 05/06/17 06:19 Dose: 100 mls/hr Sodium Chloride (Sodium Chloride 0.9%) 1,000 mls @ 20 mls/hr IV .Q24H [facility] Last Admin: 05/05/17 20:00 Dose: 20 mls/hr Iron Carb/Multivit/[place]/Folic Acid (Multivitamin W/Minerals) 1 tab PO DAILY [facility] Last Admin: 05/06/17 08:59 Dose: 1 tab Magnesium Hydroxide (Milk Of Magnesia) 30 ml PO HSP PRN PRN Reason: Constipation Ondansetron HCl (Zofran) 4 mg IV Q4-6HP PRN PRN Reason: Nausea And Vomiting Potassium Chloride (Klor-Con) 40 meq PO DAILYP PRN PRN Reason: K+ < 3.5 Pregabalin (Lyrica) 75 mg PO BID [facility] Last Admin: 05/06/17 08:59 Dose: 75 mg Senna/Docusate Sodium (Senna Plus Tablet) 1 tab PO HS [facility] Last Admin: 05/05/17 21:44 Dose: 1 tab Sodium Chloride (Saline Flush) 10 ml IV Q8 [facility] Last Admin: 05/06/17 06:19 Dose: Not Given Sulfasalazine (Sulfasalazine) 500 mg PO DAILY [facility] Last Admin: 05/06/17 09:00 Dose: 500 mg Trazodone HCl (Desyrel) 50 mg PO HSP PRN PRN Reason: Insomnia Medical - PN: A/P - Time Spent With Patient Total time spent is greater than 50% in coordination of care (as documented) at patient's floor/unit and/or counseling patient: - Narrative A/P Narrative: a/p NOn healing rabia ulcers at ankles with acute Cellutlitis: management as per Dr Prado on IV zosyn for now, vanco discontinued after mrsa neg. MRI of both ankles is neg for osteomyelitis. Rheumatoid arthritis: On hydroxychloroquine as well as sulfasalazine, continue same Neurophaty: On cymbalta and lyrica continue same. pain manggement is prn opiates Full code Regular diet Medical - PN: Qual - VTE Deep Vein Thrombosis/Pulmonary Embolism Present on Admission: No
--- NOTE | 2017-05-06 12:49 | General Surgery Progress Note ---
Subjective Patient reports: no new complaints (Uneventful night. Pain well controlled. Dressings CDI) Narrative: Note initiated : 05/06/17 at 12:47 pm Service Date, if different from initiated Date: [] Patient: Maria Luisa Torres 47 y/o F admitted on 05/04/17 for Non-Healing Ulcer Bilateral Ankle. Chief Complaint: [] Objective Temp Pulse Resp BP Pulse Ox 97.6 F 76 16 120/61 97 05/06/17 11:21 05/06/17 06:18 05/06/17 11:21 05/06/17 11:21 05/06/17 11:21 AVSS. No changes SAM. Underwent wallow study at bedside. Ordered by Hospitalist. NO defects noted. NO aspiration episodes. Dressings both legs CDI. - Additional Data Intake & Output - Last 24 hours: Intake & Output 05/04/17 05/05/17 05/06/17 05/07/17 05:59 05:59 05:59 05:59 Intake Total 350 / 1350 697 / 697 120 / 120 Output Total 452 / 452 303 / 303 Balance -102 / 898 394 / 394 119 / 119 Weight 201 lb 3.2 oz 162 lb 9.6 oz - Labs 05/06/17 04:45 05/06/17 04:45 Diabetes panel 05/06/17 Range/Units 04:45 Sodium 137 (133-145) mmol/L Potassium 4.2 (3.3-5.1) mmol/L Chloride 103 (96-108) mmol/L Carbon Dioxide 22 (22-30) mmol/L BUN 15 (6-20) mg/dl Creatinine 0.5 L (0.6-1.1) mg/dl Glucose 135 H (70-105) mg/dL Calcium 9.5 (8.6-10.4) mg/dl AST 10 (0-37) U/l ALT 7 (0-40) U/l Alkaline Phosphatase 120 H (39-117) U/L Total Protein 6.9 (5.9-8.4) gm/dL Albumin 3.5 (3.2-5.2) gm/dL Triglycerides 99 (<150) mg/dl Calcium panel 05/06/17 Range/Units 04:45 Calcium 9.5 (8.6-10.4) mg/dl Phosphorus 3.0 (2.7-4.5) mg/dL Albumin 3.5 (3.2-5.2) gm/dL Pituitary panel 05/06/17 Range/Units 04:45 Sodium 137 (133-145) mmol/L Potassium 4.2 (3.3-5.1) mmol/L Chloride 103 (96-108) mmol/L Carbon Dioxide 22 (22-30) mmol/L BUN 15 (6-20) mg/dl Creatinine 0.5 L (0.6-1.1) mg/dl Glucose 135 H (70-105) mg/dL Calcium 9.5 (8.6-10.4) mg/dl Adrenal panel 05/06/17 Range/Units 04:45 Sodium 137 (133-145) mmol/L Potassium 4.2 (3.3-5.1) mmol/L Chloride 103 (96-108) mmol/L Carbon Dioxide 22 (22-30) mmol/L BUN 15 (6-20) mg/dl Creatinine 0.5 L (0.6-1.1) mg/dl Glucose 135 H (70-105) mg/dL Calcium 9.5 (8.6-10.4) mg/dl Total Bilirubin 0.2 (0.0-1.0) mg/dL AST 10 (0-37) U/l ALT 7 (0-40) U/l Alkaline Phosphatase 120 H (39-117) U/L Total Protein 6.9 (5.9-8.4) gm/dL Albumin 3.5 (3.2-5.2) gm/dL Assessment and Plan (1) Sepsis affecting skin Problem details: FOr OR debridement and deep tissue cultures and biopsies. Status: Acute Current Visit: Yes (2) Wound infection Problem details: OR debridement, VERSAJET lavage and irrigation. Status: Acute Current Visit: Yes (3) Arthritis, rheumatoid Status: Chronic Current Visit: No (4) Depression Status: Acute Current Visit: No - Time Spent With Patient Total time spent is greater than 50% in coordination of care (as documented) at patient's floor/unit and/or counseling patient: Satisfactory post operative progress. CPT. Await c/s reports. Anticipate discharge in next 48 - 72 hours. less than 15 minutes
[2017-05-06] MEDS: SENNOSIDES/DOCUSATE SODIUM 1 TAB TABLET PO SCH (20:44)
[2017-05-06] MEDS: 0.9 % SODIUM CHLORIDE 1,000 ML IV SCH (23:08)
[2017-05-06] MEDS: 0.9 % SODIUM CHLORIDE 250 ML IV SCH (23:11)
[2017-05-06] MEDS: HYDROmorphone 2 MG/ML SYRINGE IV PRN (23:19)
[2017-05-07] MEDS: PIPERACILLIN SODIUM/TAZOBACTAM 3.375 GM in DEXTROSE 5% IN WATER 50 ML IV SCH ×5 (00:14→23:47)
[2017-05-07] MEDS: 0.9 % SODIUM CHLORIDE 10 ML SYRINGE IV SCH ×3 (05:36→21:29)
[2017-05-07 06:00] LABS: Mean Cell Volume 78.3 fL (80.0-100.0); Mean Corpuscular HGB Conc 31.9 g/dL (31.0-36.0); Platelet Count 337 K/mcL (140-440); RBC 4.74 M/mcL (4.00-5.20); Red Cell Distribution Width 17.4 % (11.5-14.5)
[2017-05-07 06:14] LABS: ALT/SGPT 11 U/l (0-40); Albumin 3.7 gm/dL (3.2-5.2); Albumin/Globulin Ratio 1.2 (1.0-2.3); Alkaline Phosphatase 112 U/L (39-117); Bilirubin,Direct < 0.2 mg/dL (0.0-0.3); Blood Urea Nitrogen 20 mg/dl (6-20); Gamma Glutamyl Transpeptidase 32 U/L (5-36); Magnesium 1.9 mg/dL (1.6-2.5); Uric Acid 2.4 mg/dL (2.5-8.0)
[2017-05-07 06:53] LABS: Anisocytosis 1+ (NONE SEEN); Band Neutrophils % 1 % (0-10); Eosinophils % (Manual) 1 % (0-7); Hypochromasia 1+ (NONE SEEN); Lymphocytes % 23 % (15-49); Monocytes % (Manual) 6 % (1-12); Platelet Estimate NORMAL (NORMAL); RBC Morphology ABNORM (NORMAL); Segmented Neutrophils % 69 % (38-78)
[2017-05-07] MEDS: HEPARIN 5,000 UNIT/ML VIAL SQ SCH ×2 (09:26→21:27)
[2017-05-07] MEDS: DULoxetine 30 MG CAPSULE PO SCH ×2 (09:26→21:28)
[2017-05-07] MEDS: MULTIVIT,THER IRON,CA,FA & MIN 1 TABLET PO SCH (09:26)
[2017-05-07] MEDS: HYDROXYCHLOROQUINE 200 MG TABLET PO SCH ×2 (09:26→21:28)
[2017-05-07] MEDS: PREGABALIN 75 MG CAPSULE PO SCH ×2 (09:26→21:28)
[2017-05-07] MEDS: sulfaSALAzine 500 MG TABLET PO SCH (09:27)
[2017-05-07] MEDS: DOCUSATE SODIUM 100 MG CAPSULE PO SCH ×2 (09:27→21:27)
[2017-05-07] MEDS: HYDROcodone/APAP 5/325MG TABLET PO PRN ×2 (09:30→21:28)
[2017-05-07] MEDS: 0.9 % SODIUM CHLORIDE 250 ML IV SCH ×2 (11:46→23:47)
--- NOTE | 2017-05-07 13:58 | Internal Med Progress Note ---
Medical - PN: Subj Patient information: Note initiated : 05/07/17 at 1:58 pm Service Date, if different from initiated Date: [] Patient: Maria Luisa Torres a 47 y/o F admitted on 05/04/17 for Non-Healing Ulcer Bilateral Ankle. Chief Complaint: [] Interval history: 05/04-Ms. Torres is a 47 year old F who was referred from Dr. Will's clinic with non-healing bilateral ankle ulcers/cellulitis and swelling right more pronounced than left. Patient has had nonhealing ulceration over the last couple of years that has intermittently worsened despite regular wound care. she clearly denies recent trauma. During today's evaluation here was significant cellulitis/ulceration involving the right ankle and therefore patient was directed by wound care physician to be admitted under hospitalist service for antibioticsfurther imaging while she would undergo debridement and wound care management as per Dr. Will. Patient carries history of rheumatoid arthritis and is currently on Platinol/sulfasalazine. Initial workup in the ED was essentially unremarkable with white count at 11.3. mRI foot was ordered at the time of Examination patient is alert oriented. She as able to provide most of the history. Denies groin pain/ swelling. pain and swelling located around both ankles. She is able to bear weight. She denies fevers, shaking chills, diarrhea, dysuria or joint swelling. She denies recent medication changes. 05/05- atient doing well. No overnight events. No concerns expressed per staff all per patient. No fever chills or d pain. wound management ongoing. Debridement today. On antibiotic coverage. Denies. on regular diet. 05/06: Pt seen examined, no acute overnight events, some soreness in her legs, but otherwise no acute issues, tolerating po diet well, Plan of care discussed with Dr Prado who believes patient will need to be here throughout the weekend to early next week 05/07: Patient seen examined, no acute overnight issues, sleeping well, does not reprot any new concerns. Her labs show some worsening of leucocytosis, but overall is doing well. Pertinent ROS: Denies headache, dizziness Denies chest pain, palpitations Denies cough or shortness of breath Denies abdominal pain, nausea or vomiting. - Constitutional Vitals: Vital Signs Temp Pulse Resp BP Pulse Ox 96.7 F L 74 20 138/75 96 05/07/17 11:16 05/07/17 03:18 05/07/17 11:16 05/07/17 11:16 05/07/17 11:16 Period Temp Pulse Resp BP Sys/[place] Pulse Ox Last 24 Hr 96.7 F-98.7 F 74-84 14-20 124-154/60-75 88-97 Intake and Output 05/06/17 05/07/17 05/07/17 21:59 05:59 13:59 Intake Total 1270 / 1270 490 / 490 300 / 300 Output Total 76 / 76 Balance 1268 / 1268 414 / 414 300 / 300 Weight 198 lb Intake & Output: Intake & Output 05/06/17 05/07/17 05/07/17 21:59 05:59 13:59 Intake Total 1270 / 1270 490 / 490 300 / 300 Output Total 76 / 76 Balance 1268 / 1268 414 / 414 300 / 300 Weight 198 lb Intake: IV 50 / 50 50 / 50 300 / 300 Sodium Chloride 0.9% 250 250 / 250 ml @ 20 mls/hr IV . [id number] [facility] Rx#:[id number] Zosyn 3.375 gm In 50 / 50 50 / 50 50 / 50 Dextrose 5% in Water 50 ml @ 100 mls/hr IV Q6H J[facility] Rx#:[id number] Oral 1220 / 1220 440 / 440 Output: Void Amount 75 / 75 # of times incontinent of 2 / 2 1 / 1 urine Other: Meal Dinner Breakfast Percent of Meal Consumed 100% 100% Feeding Ability Independent Assist with Tray Set Up # of times incontinent of 1 1 Bowels Exam: Constitutional; Afebrile, cooperative, alert, not in distress. Eyes- No icterus, , No periorbital swelling Ears- Ext ear normal, hearing normal to conversation. Neck- Midline trachea, supple Respiratory system: Air Entry equal on both sides, No crackles or wheezing, no rhonchi. CVS- Rate rhythm regular, S1,S2 heard, no gallop, no rub. 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 Medical - PN: Obj Da - Labs CBC & Chem 7: 05/07/17 04:55 05/07/17 04:55 Labs: Abnormal Lab Results 05/07/17 05/07/17 05/06/17 04:55 04:55 04:45 WBC 11.8 H Hgb 11.8 L MCV 78.3 L MCH 25.0 L RDW 17.4 H MPV Seg Neutrophils % Lymphocytes % RBC Morphology Abnorm A Hypochromasia 1+ A Anisocytosis 1+ A Microcytosis 1+ A Creatinine 0.5 L 0.5 L Glucose 135 H Uric Acid 2.4 L 2.1 L Phosphorus 2.4 L Alkaline Phosphatase 120 H 05/06/17 05/05/17 05/05/17 04:45 05:25 05:25 WBC Hgb MCV 78.4 L 79.6 L MCH 25.5 L RDW 17.3 H 17.2 H MPV 7.1 L Seg Neutrophils % 88 H Lymphocytes % 9 L RBC Morphology Abnorm A Abnorm A Hypochromasia 1+ A 1+ A Anisocytosis 1+ A 1+ A Microcytosis 1+ A 1+ A Creatinine Glucose Uric Acid Phosphorus Alkaline Phosphatase 118 H Meds: Medications Acetaminophen (Tylenol) 650 mg PO Q4-6HP PRN PRN Reason: PAIN/FEVER > 101 Hydrocodone Bitart/Acetaminophen (Glenn 5/325mg) 0 tab PO Q4HP PRN PRN Reason: Pain Last Admin: 05/07/17 09:30 Dose: 2 tab Dextrose (Dextrose 50%) 0 ml IV UD PRN PRN Reason: Hypoglycemia Diphenhydramine HCl (Benadryl) 25 mg PO Q6HP PRN PRN Reason: Allergic Symptoms Docusate Sodium (Colace) 100 mg PO BID [facility] Last Admin: 05/07/17 09:27 Dose: Not Given Duloxetine HCl (Cymbalta) 30 mg PO BID [facility] Last Admin: 05/07/17 09:26 Dose: 30 mg Glucose (Insta-Glucose) 15 gm PO PRN PRN PRN Reason: Hypoglycemia Heparin Sodium (Porcine) (Heparin) 5,000 unit SQ Q12 [facility] Last Admin: 05/07/17 09:26 Dose: 5,000 unit Hydromorphone HCl (Dilaudid) 0 mg IV Q4HP PRN PRN Reason: Pain Last Admin: 05/06/17 23:19 Dose: 0.5 mg Hydroxychloroquine Sulfate (Plaquenil) 200 mg PO BID [facility] Last Admin: 05/07/17 09:26 Dose: 200 mg Magnesium Sulfate (Magnesium Sulfate) 2 gm in 50 mls @ 50 mls/hr IV UD PRN PRN Reason: MG = or < 1.7 Acetaminophen (Ofirmev) 1,000 mg in 100 mls @ 200 mls/hr IV Q6HP PRN PRN Reason: PAIN/FEVER > 101 Piperacillin Sod/Tazobactam (Sod 3.375 gm/ Dextrose) 50 mls @ 100 mls/hr IV Q6H [facility] Last Admin: 05/07/17 11:44 Dose: 100 mls/hr Sodium Chloride (Sodium Chloride 0.9%) 250 mls @ 20 mls/hr IV .[id number] [facility] Last Admin: 05/07/17 11:46 Dose: 20 mls/hr Iron Carb/Multivit/[place]/Folic Acid (Multivitamin W/Minerals) 1 tab PO DAILY [facility] Last Admin: 05/07/17 09:26 Dose: 1 tab Magnesium Hydroxide (Milk Of Magnesia) 30 ml PO HSP PRN PRN Reason: Constipation Ondansetron HCl (Zofran) 4 mg IV Q4-6HP PRN PRN Reason: Nausea And Vomiting Potassium Chloride (Klor-Con) 40 meq PO DAILYP PRN PRN Reason: K+ < 3.5 Pregabalin (Lyrica) 75 mg PO BID [facility] Last Admin: 05/07/17 09:26 Dose: 75 mg Senna/Docusate Sodium (Senna Plus Tablet) 1 tab PO HS [facility] Last Admin: 05/06/17 20:44 Dose: Not Given Sodium Chloride (Saline Flush) 10 ml IV Q8 [facility] Last Admin: 05/07/17 13:36 Dose: Not Given Sulfasalazine (Sulfasalazine) 500 mg PO DAILY [facility] Last Admin: 05/07/17 09:27 Dose: 500 mg Trazodone HCl (Desyrel) 50 mg PO HSP PRN PRN Reason: Insomnia Medical - PN: A/P - Time Spent With Patient Total time spent is greater than 50% in coordination of care (as documented) at patient's floor/unit and/or counseling patient: - Narrative A/P Narrative: a/p Non healing rabia ulcers at ankles with acute Cellulitis: management as per Dr Prado on IV zosyn for now, vanco discontinued after mrsa neg. MRI of both ankles is neg for osteomyelitis. leucocytosis: etiology? clinically no e/o new infection, monitor for now. Rheumatoid arthritis: On hydroxychloroquine as well as sulfasalazine, continue same Neuropathy: On cymbalta and lyrica continue same. pain management is prn opiates Full code Regular diet Medical - PN: Qual - VTE Deep Vein Thrombosis/Pulmonary Embolism Present on Admission: No
[2017-05-07] MEDS: SENNOSIDES/DOCUSATE SODIUM 1 TAB TABLET PO SCH (21:29)
[2017-05-07] MEDS: HYDROmorphone 2 MG/ML SYRINGE IV PRN (23:46)
[2017-05-08] MEDS: PIPERACILLIN SODIUM/TAZOBACTAM 3.375 GM in DEXTROSE 5% IN WATER 50 ML IV SCH ×3 (05:20→17:16)
[2017-05-08] MEDS: 0.9 % SODIUM CHLORIDE 10 ML SYRINGE IV SCH ×3 (06:06→20:48)
[2017-05-08 06:44] LABS: Mean Cell Volume 79.5 fL (80.0-100.0); Mean Corpuscular HGB Conc 32.7 g/dL (31.0-36.0); Platelet Count 480 K/mcL (140-440); Red Cell Distribution Width 17.3 % (11.5-14.5)
[2017-05-08 06:58] LABS: ALT/SGPT 18 U/l (0-40); Albumin/Globulin Ratio 1.1 (1.0-2.3); Alkaline Phosphatase 124 U/L (39-117); Bilirubin,Direct < 0.2 mg/dL (0.0-0.3); Blood Urea Nitrogen 19 mg/dl (6-20); Gamma Glutamyl Transpeptidase 47 U/L (5-36); Magnesium 2.1 mg/dL (1.6-2.5); Uric Acid 2.4 mg/dL (2.5-8.0)
[2017-05-08 07:58] LABS: Anisocytosis 1+ (NONE SEEN); Band Neutrophils % 1 % (0-10); Hypochromasia 1+ (NONE SEEN); Lymphocytes % 40 % (15-49); Metamyelocytes % 1 % (0-0); Monocytes % (Manual) 5 % (1-12); Platelet Estimate INCREASED (NORMAL); RBC Morphology ABNORM (NORMAL); Segmented Neutrophils % 53 % (38-78)
[2017-05-08] MEDS: DULoxetine 30 MG CAPSULE PO SCH ×2 (07:58→20:48)
[2017-05-08] MEDS: PREGABALIN 75 MG CAPSULE PO SCH ×2 (07:58→20:48)
[2017-05-08] MEDS: HYDROXYCHLOROQUINE 200 MG TABLET PO SCH ×2 (07:58→20:48)
[2017-05-08] MEDS: HYDROcodone/APAP 5/325MG TABLET PO PRN (07:58)
[2017-05-08] MEDS: MULTIVIT,THER IRON,CA,FA & MIN 1 TABLET PO SCH (07:58)
[2017-05-08] MEDS: HEPARIN 5,000 UNIT/ML VIAL SQ SCH ×2 (07:59→20:47)
[2017-05-08] MEDS: sulfaSALAzine 500 MG TABLET PO SCH (07:59)
--- NOTE | 2017-05-08 11:27 | General Surgery Progress Note ---
Subjective Patient reports: no new complaints (POD # 4. Patient seen on rounds with SILVIA Millerresident care aid nurse. NO wound related symptoms. ) Narrative: Note initiated : 05/08/17 at 11:23 am Service Date, if different from initiated Date: [] Patient: Maria Luisa Torres 47 y/o F admitted on 05/04/17 for Non-Healing Ulcer Bilateral Ankle. Chief Complaint: [] Objective Temp Pulse Resp BP Pulse Ox 97.6 F 75 16 141/62 95 05/08/17 06:21 05/08/17 07:54 05/08/17 06:21 05/08/17 06:21 05/08/17 07:54 AVSS. No changes SAM. L/E: Primary dressings changed from both leg wounds. Resolving erythema and periwound inflammatory changes. Wound beds covered with pink granulations. TENDER ++ Periwound skin and sub q tissues CDI. - Additional Data Intake & Output - Last 24 hours: Intake & Output 05/06/17 05/07/17 05/08/17 05/09/17 05:59 05:59 05:59 05:59 Intake Total 697 / 697 1979 / 1979 1650 / 1650 360 / 360 Output Total 303 / 303 79 / 79 306 / 306 376 / 376 Balance 394 / 394 1901 / 1901 1344 / 1344 - / -16 Weight 162 lb 9.6 oz 198 lb 197 lb 8 oz - Labs 05/08/17 05:50 05/08/17 05:50 Diabetes panel 05/08/17 Range/Units 05:50 Sodium 139 (133-145) mmol/L Potassium 3.9 (3.3-5.1) mmol/L Chloride 100 (96-108) mmol/L Carbon Dioxide 26 (22-30) mmol/L BUN 19 (6-20) mg/dl Creatinine 0.6 (0.6-1.1) mg/dl Glucose 107 H (70-105) mg/dL Calcium 9.7 (8.6-10.4) mg/dl AST 17 (0-37) U/l ALT 18 (0-40) U/l Alkaline Phosphatase 124 H (39-117) U/L Total Protein 7.5 (5.9-8.4) gm/dL Albumin 4.0 (3.2-5.2) gm/dL Triglycerides 235 H (<150) mg/dl Calcium panel 05/08/17 Range/Units 05:50 Calcium 9.7 (8.6-10.4) mg/dl Phosphorus 3.4 (2.7-4.5) mg/dL Albumin 4.0 (3.2-5.2) gm/dL Pituitary panel 05/08/17 Range/Units 05:50 Sodium 139 (133-145) mmol/L Potassium 3.9 (3.3-5.1) mmol/L Chloride 100 (96-108) mmol/L Carbon Dioxide 26 (22-30) mmol/L BUN 19 (6-20) mg/dl Creatinine 0.6 (0.6-1.1) mg/dl Glucose 107 H (70-105) mg/dL Calcium 9.7 (8.6-10.4) mg/dl Adrenal panel 05/08/17 Range/Units 05:50 Sodium 139 (133-145) mmol/L Potassium 3.9 (3.3-5.1) mmol/L Chloride 100 (96-108) mmol/L Carbon Dioxide 26 (22-30) mmol/L BUN 19 (6-20) mg/dl Creatinine 0.6 (0.6-1.1) mg/dl Glucose 107 H (70-105) mg/dL Calcium 9.7 (8.6-10.4) mg/dl Total Bilirubin 0.2 (0.0-1.0) mg/dL AST 17 (0-37) U/l ALT 18 (0-40) U/l Alkaline Phosphatase 124 H (39-117) U/L Total Protein 7.5 (5.9-8.4) gm/dL Albumin 4.0 (3.2-5.2) gm/dL Assessment and Plan (1) Sepsis affecting skin Problem details: FOr OR debridement and deep tissue cultures and biopsies. Status: Acute Current Visit: Yes (2) Wound infection Problem details: OR debridement, VERSAJET lavage and irrigation. Status: Acute Current Visit: Yes (3) Arthritis, rheumatoid Status: Chronic Current Visit: No (4) Depression Status: Acute Current Visit: No - Time Spent With Patient Total time spent is greater than 50% in coordination of care (as documented) at patient's floor/unit and/or counseling patient: Satisfactory progress from wound care point of view. Wound cultures : Staph aureus SLATER sensitive Plan : Local wound care as ordered. Continue on going wound care and dressing changes. D/C planning and out patient f/u at wound clinic and referral to LISA Drummond, as out patietn later. 15 - 24 minutes
[2017-05-08] MEDS ORDERED: HYDROmorphone 2 MG/ML SYRINGE IV PRN (11:28)
[2017-05-08] MEDS ORDERED: HYDROcodone/APAP 5/325MG TABLET PO PRN (11:28)
[2017-05-08] MEDS: DOCUSATE SODIUM 100 MG CAPSULE PO SCH ×2 (12:18→20:48)
[2017-05-08] MEDS: 0.9 % SODIUM CHLORIDE 250 ML IV SCH (13:00)
--- NOTE | 2017-05-08 14:34 | Internal Med Progress Note ---
Medical - PN: Subj Patient information: Note initiated : 05/08/17 at 2:31 pm Service Date, if different from initiated Date: [] Patient: Maria Luisa Torres a 47 y/o F admitted on 05/04/17 for Non-Healing Ulcer Bilateral Ankle. Chief Complaint: [] Interval history: 05/04-Ms. Torres is a 47 year old F who was referred from Dr. Will's clinic with non-healing bilateral ankle ulcers/cellulitis and swelling right more pronounced than left. Patient has had nonhealing ulceration over the last couple of years that has intermittently worsened despite regular wound care. she clearly denies recent trauma. During today's evaluation here was significant cellulitis/ulceration involving the right ankle and therefore patient was directed by wound care physician to be admitted under hospitalist service for antibioticsfurther imaging while she would undergo debridement and wound care management as per Dr. Will. Patient carries history of rheumatoid arthritis and is currently on Platinol/sulfasalazine. Initial workup in the ED was essentially unremarkable with white count at 11.3. mRI foot was ordered at the time of Examination patient is alert oriented. She as able to provide most of the history. Denies groin pain/ swelling. pain and swelling located around both ankles. She is able to bear weight. She denies fevers, shaking chills, diarrhea, dysuria or joint swelling. She denies recent medication changes. 05/05- atient doing well. No overnight events. No concerns expressed per staff all per patient. No fever chills or d pain. wound management ongoing. Debridement today. On antibiotic coverage. Denies. on regular diet. 05/06: Pt seen examined, no acute overnight events, some soreness in her legs, but otherwise no acute issues, tolerating po diet well, Plan of care discussed with Dr Prado who believes patient will need to be here throughout the weekend to early next week 05/07: Patient seen examined, no acute overnight issues, sleeping well, does not reprot any new concerns. Her labs show some worsening of leucocytosis, but overall is doing well. 05/08: Patient seen examined overnight events, slept well, tolerating by mouth medications as well as diet very well. The leukocytosis is improving. Wound care following for management of for cellulitis as well as infected wounds. atient still complains of aches and has been receiving Dilaudid, plan to stop IV pain meds except during dressing changes. Use oral as needed pain medications. Pertinent ROS: Denies headache, dizziness Denies chest pain, palpitations Denies cough or shortness of breath Denies abdominal pain, nausea or vomiting. - Constitutional Vitals: Vital Signs Temp Pulse Resp BP Pulse Ox 98 F 75 20 133/76 96 05/08/17 11:15 05/08/17 07:54 05/08/17 11:15 05/08/17 11:15 05/08/17 11:15 Period Temp Pulse Resp BP Sys/[place] Pulse Ox Last 24 Hr 97 F-98.1 F 71-75 14-20 117-150/62-78 94-98 Intake and Output 05/08/17 05/08/17 05/08/17 05:59 13:59 21:59 Intake Total 340 / 340 360 / 360 Output Total 302 / 302 376 / 376 Balance 38 / 38 -16 -16 Intake & Output: Intake & Output 05/08/17 05/08/17 05/08/17 05:59 13:59 21:59 Intake Total 340 / 340 360 / 360 Output Total 302 / 302 376 / 376 Balance 38 / 38 -16 Intake: IV 340 / 340 Sodium Chloride 0.9% 250 240 / 240 ml @ 20 mls/hr IV . [id number] [facility] Rx#:[id number] Zosyn 3.375 gm In 100 / 100 Dextrose 5% in Water 50 ml @ 100 mls/hr IV Q6H [facility] Rx#:[id number] Oral 360 / 360 Output: Void Amount 300 / 300 375 / 375 # of times incontinent of 2 / 2 1 / urine Other: Meal Breakfast Percent of Meal Consumed 100% # Voids 2 # Bowel Movements 1 Exam: Constitutional; Afebrile, cooperative, alert, not in distress. Eyes- No icterus, , No periorbital swelling Ears- Ext ear normal, hearing normal to conversation. Neck- Midline trachea, supple Respiratory system: Air Entry equal on both sides, No crackles or wheezing, no rhonchi. CVS- Rate rhythm regular, S1,S2 heard, no gallop, no rub. Abdomen- Soft nontender abdomen, no organomegaly, no tenderness, no guarding or rigidity, DIRECTOR OF ESTATE- AOOx3, moving all extremities, no gross focal deficit noted. Medical - PN: Obj Da - Labs CBC & Chem 7: 05/08/17 05:50 05/08/17 05:50 Labs: Abnormal Lab Results 05/08/17 05/08/17 05/07/17 05:50 05:50 04:55 WBC 11.1 H Hgb MCV 79.5 L MCH RDW 17.3 H Plt Count 480 H MPV 7.1 L Seg Neutrophils % Lymphocytes % Metamyelocytes % 1 H RBC Morphology Abnorm A Hypochromasia 1+ A Anisocytosis 1+ A Microcytosis 1+ A Creatinine 0.5 L Glucose 107 H Uric Acid 2.4 L 2.4 L Phosphorus 2.4 L GGT 47 H Alkaline Phosphatase 124 H Triglycerides 235 H 05/07/17 05/06/17 05/06/17 04:55 04:45 04:45 WBC 11.8 H Hgb 11.8 L MCV 78.3 L 78.4 L MCH 25.0 L 25.5 L RDW 17.4 H 17.3 H Plt Count MPV Seg Neutrophils % 88 H Lymphocytes % 9 L Metamyelocytes % RBC Morphology Abnorm A Abnorm A Hypochromasia 1+ A 1+ A Anisocytosis 1+ A 1+ A Microcytosis 1+ A 1+ A Creatinine 0.5 L Glucose 135 H Uric Acid 2.1 L Phosphorus GGT Alkaline Phosphatase 120 H Triglycerides Meds: Medications Acetaminophen (Tylenol) 650 mg PO Q4-6HP PRN PRN Reason: PAIN/FEVER > 101 Hydrocodone Bitart/Acetaminophen ([place]ra 5/325mg) 1 tab PO Q4-6HP PRN PRN Reason: Pain Dextrose (Dextrose 50%) 0 ml IV UD PRN PRN Reason: Hypoglycemia Diphenhydramine HCl (Benadryl) 25 mg PO Q6HP PRN PRN Reason: Allergic Symptoms Docusate Sodium (Colace) 100 mg PO BID [facility] Last Admin: 05/08/17 12:18 Dose: Not Given Duloxetine HCl (Cymbalta) 30 mg PO BID [facility] Last Admin: 05/08/17 07:58 Dose: 30 mg Glucose (Insta-Glucose) 15 gm PO PRN PRN PRN Reason: Hypoglycemia Heparin Sodium (Porcine) (Heparin) 5,000 unit SQ Q12 [facility] Last Admin: 05/08/17 07:59 Dose: 5,000 unit Hydromorphone HCl (Dilaudid) 0.5 mg IV BID PRN PRN Reason: Dressing Changes Last Admin: 05/08/17 11:30 Dose: 0.5 mg Hydroxychloroquine Sulfate (Plaquenil) 200 mg PO BID [facility] Last Admin: 05/08/17 07:58 Dose: 200 mg Magnesium Sulfate (Magnesium Sulfate) 2 gm in 50 mls @ 50 mls/hr IV UD PRN PRN Reason: MG = or < 1.7 Acetaminophen (Ofirmev) 1,000 mg in 100 mls @ 200 mls/hr IV Q6HP PRN PRN Reason: PAIN/FEVER > 101 Piperacillin Sod/Tazobactam (Sod 3.375 gm/ Dextrose) 50 mls @ 100 mls/hr IV Q6H [facility] Last Admin: 05/08/17 12:18 Dose: 100 mls/hr Sodium Chloride (Sodium Chloride 0.9%) 250 mls @ 20 mls/hr IV .[id number] [facility] Last Admin: 05/07/17 23:47 Dose: 20 mls/hr Iron Carb/Multivit/[place]/Folic Acid (Multivitamin W/Minerals) 1 tab PO DAILY [facility] Last Admin: 05/08/17 07:58 Dose: 1 tab Magnesium Hydroxide (Milk Of Magnesia) 30 ml PO HSP PRN PRN Reason: Constipation Ondansetron HCl (Zofran) 4 mg IV Q4-6HP PRN PRN Reason: Nausea And Vomiting Potassium Chloride (Klor-Con) 40 meq PO DAILYP PRN PRN Reason: K+ < 3.5 Pregabalin (Lyrica) 75 mg PO BID [facility] Last Admin: 05/08/17 07:58 Dose: 75 mg Senna/Docusate Sodium (Senna Plus Tablet) 1 tab PO HS [facility] Last Admin: 05/07/17 21:29 Dose: Not Given Sodium Chloride (Saline Flush) 10 ml IV Q8 [facility] Last Admin: 05/08/17 06:06 Dose: Not Given Sulfasalazine (Sulfasalazine) 500 mg PO DAILY [facility] Last Admin: 05/08/17 07:59 Dose: 500 mg Trazodone HCl (Desyrel) 50 mg PO HSP PRN PRN Reason: Insomnia Medical - PN: A/P - Time Spent With Patient Total time spent is greater than 50% in coordination of care (as documented) at patient's floor/unit and/or counseling patient: - Narrative A/P Narrative: a/p Non healing rabia ulcers at ankles with acute Cellulitis: management as per Dr Prado on IV zosyn for now, vanco discontinued after mrsa neg. MRI of both ankles is neg for osteomyelitis. Can be discharged home on oral antibiotics. leucocytosis: etiology? clinically no e/o new infection, trending down. Rheumatoid arthritis: On hydroxychloroquine as well as sulfasalazine, continue same Neuropathy: On cymbalta and lyrica continue same. pain management is prn opiates Full code Regular diet discharge when ok by Wound care Medical - PN: Qual - VTE Deep Vein Thrombosis/Pulmonary Embolism Present on Admission: No
[2017-05-08] MEDS: SENNOSIDES/DOCUSATE SODIUM 1 TAB TABLET PO SCH (20:48)
[2017-05-09] MEDS: PIPERACILLIN SODIUM/TAZOBACTAM 3.375 GM in DEXTROSE 5% IN WATER 50 ML IV SCH ×3 (00:25→12:25)
[2017-05-09] MEDS: 0.9 % SODIUM CHLORIDE 250 ML IV SCH ×2 (05:00→16:09)
[2017-05-09] MEDS: 0.9 % SODIUM CHLORIDE 10 ML SYRINGE IV SCH ×2 (05:02→16:09)
[2017-05-09 05:39] LABS: Mean Cell Volume 78.8 fL (80.0-100.0); Mean Corpuscular HGB Conc 32.4 g/dL (31.0-36.0); Mean Corpuscular Hemoglobin 25.6 pg (26.0-34.0); Platelet Count 428 K/mcL (140-440); RBC 5.07 M/mcL (4.00-5.20)
[2017-05-09 06:20] LABS: ALT/SGPT 23 U/l (0-40); Albumin 3.9 gm/dL (3.2-5.2); Albumin/Globulin Ratio 1.1 (1.0-2.3); Alkaline Phosphatase 129 U/L (39-117); Bilirubin,Direct < 0.2 mg/dL (0.0-0.3); Blood Urea Nitrogen 21 mg/dl (6-20); Gamma Glutamyl Transpeptidase 56 U/L (5-36); Magnesium 2.3 mg/dL (1.6-2.5); Uric Acid 2.3 mg/dL (2.5-8.0)
[2017-05-09 07:04] LABS: Anisocytosis 1+ (NONE SEEN); Eosinophils % (Manual) 2 % (0-7); Hypochromasia 1+ (NONE SEEN); Lymphocytes % 21 % (15-49); Monocytes % (Manual) 1 % (1-12); Platelet Estimate NORMAL (NORMAL); RBC Morphology ABNORM (NORMAL); Segmented Neutrophils % 76 % (38-78)
--- NOTE | 2017-05-09 08:03 | XRay Report ---
CLINICAL INFORMATION: Leukocytosis TECHNIQUE: Upright PA and lateral chest x-ray COMPARISON: 03/11/2016 FINDINGS: Lungs are negative. No parenchymal infiltrate or mass. No findings of pneumonia. Heart size and vascularity are normal. No pulmonary congestion. No pulmonary edema. Linda and mediastinum are negative. No pleural fluid. IMPRESSION: Negative chest x-ray Interpreted and Authenticated by: Felipe Brasher 05/09/17
[2017-05-09] MEDS: PREGABALIN 75 MG CAPSULE PO SCH (08:40)
[2017-05-09] MEDS: MULTIVIT,THER IRON,CA,FA & MIN 1 TABLET PO SCH (08:40)
[2017-05-09] MEDS: sulfaSALAzine 500 MG TABLET PO SCH (08:40)
[2017-05-09] MEDS: DULoxetine 30 MG CAPSULE PO SCH (08:40)
[2017-05-09] MEDS: HEPARIN 5,000 UNIT/ML VIAL SQ SCH (08:40)
[2017-05-09] MEDS: HYDROXYCHLOROQUINE 200 MG TABLET PO SCH (08:41)
[2017-05-09] MEDS: DOCUSATE SODIUM 100 MG CAPSULE PO SCH (08:41)
--- NOTE | 2017-05-09 08:52 | General Surgery Progress Note ---
Subjective Patient reports: no new complaints Narrative: Note initiated : 05/09/17 at 8:50 am Service Date, if different from initiated Date: [] Patient: Maria Luisa Torres 47 y/o F admitted on 05/04/17 for Non-Healing Ulcer Bilateral Ankle. Chief Complaint: [] Patient had an uneventful night. Ready to be discharged with out patient follow up at wound center. Objective Temp Pulse Resp BP Pulse Ox 97.2 F 67 16 123/69 98 05/09/17 07:03 05/09/17 07:50 05/09/17 07:50 05/09/17 07:03 05/09/17 07:50 AVSS. No changes SAM. L/E Wounds clean and dry. Mepitel gauze in situ. Labs reviewed. Leucocytosis, Creatinine 2.0 Will monitor. Wound cultures SA SLATER SENSITIVE. - Additional Data Intake & Output - Last 24 hours: Intake & Output 05/07/17 05/08/17 05/09/17 05/10/17 05:59 05:59 05:59 05:59 Intake Total 1979 / 1979 1700 / 1700 1895 / 1895 Output Total 79 / 79 306 / 306 530 / 530 Balance 1901 / 1901 1394 / 1394 1365 / 1365 Weight 198 lb 197 lb 8 oz 197 lb - Labs 05/09/17 04:42 05/09/17 04:42 Diabetes panel 05/09/17 Range/Units 04:42 Sodium 141 (133-145) mmol/L Potassium 3.9 (3.3-5.1) mmol/L Chloride 103 (96-108) mmol/L Carbon Dioxide 24 (22-30) mmol/L BUN 21 H (6-20) mg/dl Creatinine 0.6 (0.6-1.1) mg/dl Glucose 110 H (70-105) mg/dL Calcium 9.7 (8.6-10.4) mg/dl AST 16 (0-37) U/l ALT 23 (0-40) U/l Alkaline Phosphatase 129 H (39-117) U/L Total Protein 7.4 (5.9-8.4) gm/dL Albumin 3.9 (3.2-5.2) gm/dL Triglycerides 138 (<150) mg/dl Calcium panel 05/09/17 Range/Units 04:42 Calcium 9.7 (8.6-10.4) mg/dl Phosphorus 3.5 (2.7-4.5) mg/dL Albumin 3.9 (3.2-5.2) gm/dL Pituitary panel 05/09/17 Range/Units 04:42 Sodium 141 (133-145) mmol/L Potassium 3.9 (3.3-5.1) mmol/L Chloride 103 (96-108) mmol/L Carbon Dioxide 24 (22-30) mmol/L BUN 21 H (6-20) mg/dl Creatinine 0.6 (0.6-1.1) mg/dl Glucose 110 H (70-105) mg/dL Calcium 9.7 (8.6-10.4) mg/dl Adrenal panel 05/09/17 Range/Units 04:42 Sodium 141 (133-145) mmol/L Potassium 3.9 (3.3-5.1) mmol/L Chloride 103 (96-108) mmol/L Carbon Dioxide 24 (22-30) mmol/L BUN 21 H (6-20) mg/dl Creatinine 0.6 (0.6-1.1) mg/dl Glucose 110 H (70-105) mg/dL Calcium 9.7 (8.6-10.4) mg/dl Total Bilirubin < 0.2 (0.0-1.0) mg/dL AST 16 (0-37) U/l ALT 23 (0-40) U/l Alkaline Phosphatase 129 H (39-117) U/L Total Protein 7.4 (5.9-8.4) gm/dL Albumin 3.9 (3.2-5.2) gm/dL Assessment and Plan (1) Sepsis affecting skin Problem details: FOr OR debridement and deep tissue cultures and biopsies. Status: Acute Current Visit: Yes (2) Wound infection Problem details: OR debridement, VERSAJET lavage and irrigation. Status: Acute Assessment and plan: Assessment: Satisfactory post operative progress with wound care and pain relief. ( Palliative Care ) Plan: OK to discharge on Augmentin 500 mg PO TID for ten days # so tabs. Hydrofera blue ready over Mepitel covered wounds, KERLIX and JUNITO Wraps. OUT PATENT wound care follow up in ONE week at wound clinic. Out patient I D consult DENNISE Chacon at [facility]. PLEASE SCHEDULE out patient ID referral for patient before discharge. Current Visit: Yes (3) Arthritis, rheumatoid Status: Chronic Current Visit: No (4) Depression Status: Acute Current Visit: No - Time Spent With Patient Total time spent is greater than 50% in coordination of care (as documented) at patient's floor/unit and/or counseling patient:
--- NOTE | 2017-05-09 11:37 | Operative Note ---
DATE OF OPERATION: 05/05/2017 PREOPERATIVE DIAGNOSIS: Acute exacerbation of chronic wound infection now with sepsis, infected leg ulcers bilateral lower half. Large venous leg ulcer medial aspect right leg and lateral pressure ulcers, left leg lower half. PROCEDURE: Surgical debridement with pulse lavage irrigation and tissue biopsies and cultures and sensitivity specimens. PROCEDURE IN DETAIL: After obtaining informed consent, the patient was taken to the OR. Timeout was called. Patient was anesthetized uneventfully in supine position using laryngeal mask airway. Both lower extremities were widely cleaned, prepped and draped from the knee down to the toes. We first proceeded to debride the right venous leg ulcer. The dimensions were 9 x 5 cm with a depth of 0.5 cm. The biofilm and adherent eschar was carefully debrided with sharp and blunt curettes and all the nonviable tissue was removed down to the underlying deep scar and fascia. Upon completion, there was bright red oozing and capillary bleeding from the wound margins and base. Hemostasis was achieved with pressure. A part of the specimen was sent for microbiology studies. The dressings consisted of Xeroform gauze, AMD Kerlix gauze and Rober bandages. The wound was irrigated with antibiotic-containing saline solution. Attention was turned to the left leg wounds. They were treated in a similar fashion. Wound dimensions: Left proximal lower half wound lateral 5 x 3 x 0.5 cm and left lateral distal wound lower half left leg 4 x 2.5 x 0.5 cm. The procedure was well tolerated. Blood loss: 20 mL. All counts were reported correct. VD:prasanth Job ID: [id number] Doc ID: [id number] Zach Will MD
--- NOTE | 2017-05-09 12:50 | Discharge Summary ---
Medical - DS: Prov Patient information: Note initiated : 05/09/17 at 12:48 pm Service Date, if different from initiated Date: [] Patient: Maria Luisa Torres a 47 y/o F admitted on 05/04/17 for Non-Healing Ulcer Bilateral Ankle. Chief Complaint: [] Date of admission: 05/04/17 19:03 Discharge date: 05/09/17 Primary care physician: Coco Morel Admitting clinician: Jasper Braxton Discharging clinician: Jeanna Mata Medical - DS: Meds - Discharge Medications Active and Home Medications: Home Medications Diclofenac [Voltaren] 50 mg PO QIDP 02/02/16 [History Confirmed 05/04/17 Last Taken 08/02/16 50 MG.] DULoxetine [Cymbalta] 30 mg PO BID capsule 03/10/16 [Rx Confirmed 05/04/17 Last Taken 08/02/16 30 MG.] Hydroxychloroquine [Plaquenil] 200 mg PO BID tablet 03/10/16 [Rx Confirmed Last Taken 08/02/16 200 mg.] Pregabalin [Lyrica] 75 mg PO BID 06/01/16 [History Confirmed 05/04/17 Last Taken 08/02/16 75 mg.] sulfaSALAzine [Sulfasalazine] 500 mg PO DAILY 06/01/16 [History Confirmed Last Taken 08/02/16 500 mg.] HYDROcodone/APAP 10/325MG [[place] 10/325Mg] 10 mg PO Q4H PRN 08/03/16 [History Confirmed 05/04/17 Last Taken 08/02/16 16:00 1 TAB] Medical - DS: Hosp Hospital course: Ms. Torres is a 47 year old F who was referred from Dr. Will's clinic with non-healing bilateral ankle ulcers/cellulitis and swelling right more pronounced than left. Patient has had nonhealing ulceration over the last couple of years that has intermittently worsened despite regular wound care. she clearly denies recent trauma. During today's evaluation here was significant cellulitis/ulceration involving the right ankle and therefore patient was directed by wound care physician to be admitted under hospitalist service for antibiotics further imaging while she would undergo debridement and wound care management as per Dr. Will. Patient carries history of rheumatoid arthritis and is currently on Platinol/sulfasalazine. Initial workup in the ED was essentially unremarkable with white count at 11.3. MRI of the both feet were neg for Osteomyelits The wounds were treated with IV antibiotics, and local wound care, the patient responded to treatment well, the patient remained afebrile during the stay, she had mssa growing from the wounds. She will be discharged home on augmentin 500mg tid x [address] Rika culp. Follow up with ID The patient had mild elevated WBC count which had waxing and waning throughout the stay, CXR neg, ua neg, likely reactive. should improve as wound heals. NO changes in home medication list is being done. Antibiotics x 10 days as above. Discharge diagnosis: Cellulitis/ Chr Wound - Time Spent with Patient Total time spent providing and/or coordinating discharge services: Less than 30 minutes Medical - DS: Exam - Constitutional Vitals: Vital Signs Temp Pulse Pulse Resp BP BP Pulse Ox 05/09/17 12:00 97.9 F 16 123/70 96 05/09/17 07:50 67 16 98 05/09/17 07:03 97.2 F 16 123/69 96 05/09/17 04:00 97.1 F 74 16 121/71 99 05/09/17 00:00 97.3 F 85 18 148/74 98 05/08/17 19:06 97.1 F 72 16 150/68 97 05/08/17 15:14 98.6 F 20 144/68 91 Intake and Output 05/08/17 05/09/17 05/09/17 21:59 05:59 13:59 Intake Total 835 / 835 400 / 400 50 / 50 Output Total 152 / 152 2 / 2 Balance 683 / 683 398 / 398 50 / 50 Intake: IV 50 / 50 300 / 300 50 / 50 Sodium Chloride 0.9% 250 250 / 250 ml @ 20 mls/hr IV . [id number] JANE Rx#:[id number] Zosyn 3.375 gm In 50 / 50 50 / 50 50 / 50 Dextrose 5% in Water 50 ml @ 100 mls/hr IV Q6H JANE Rx#:[id number] Oral 785 / 785 100 / 100 Output: Void Amount 150 / 150 # of times incontinent of 2 / 2 2 / 2 urine Other: Meal Dinner Percent of Meal Consumed 75% # Voids 1 # Bowel Movements 1 # of times incontinent of 1 Bowels Weight 197 lb Additional comments: Constitutional; Afebrile, cooperative, alert, not in distress. Eyes- No icterus, , No periorbital swelling Ears- Ext ear normal, hearing normal to conversation. Neck- Midline trachea, supple Respiratory system: Air Entry equal on both sides, No crackles or wheezing, no rhonchi. CVS- Rate rhythm regular, S1,S2 heard, no gallop, no rub. Abdomen- Soft nontender abdomen, no organomegaly, no tenderness, no guarding or rigidity, TEACHING ARTIST- AOOx3, moving all extremities, no gross focal deficit noted. Medical - DS: Data Labs on day of discharge: Labs from last 24 hours 05/09/17 05/09/17 04:42 04:42 WBC 11.8 H RBC 5.07 Hgb 13.0 Hct 40.0 MCV 78.8 L MCH 25.6 L MCHC 32.4 RDW 18.0 H Plt Count 428 MPV 7.2 L Total Counted 100 Seg Neutrophils % 76 Band Neutrophils % Not Reportable Lymphocytes % 21 Monocytes % (Manual) 1 Eosinophils % (Manual) 2 Platelet Estimate Normal RBC Morphology Abnorm A Hypochromasia 1+ A Anisocytosis 1+ A Microcytosis 1+ A Sodium 141 Potassium 3.9 Chloride 103 Carbon Dioxide 24 Anion Gap 14.0 BUN 21 H Creatinine 0.6 GFR Calculation 108 Glucose 110 H Uric Acid 2.3 L Calcium 9.7 Phosphorus 3.5 Magnesium 2.3 Total Bilirubin < 0.2 Direct Bilirubin < 0.2 GGT 56 H AST 16 ALT 23 Alkaline Phosphatase 129 H Lactate Dehydrogenase 150 Total Protein 7.4 Albumin 3.9 Globulin 3.5 Albumin/Globulin Ratio 1.1 Triglycerides 138 Preliminary micro results at discharge 05/05/17 19:32 Anaerobic Culture - Preliminary Wound - Not Given Medical - DS: A/P - Patient/Caregiver Discharge Instructions Activity: increase activity as tolerated Diet: Regular Diet Additional Instructions: Take antibiotics PO TID for ten days , Wound care with , Hydrofera blue ready over Mepitel covered wounds, KERLIX and JUNITO Wraps. As instructed by Wound care physician/ Nurse FOllow up with Infectious Disease BILL POSTER INSTALLERTerri Drummond as outpatient [facility] Follow up with wound care in 1 week. Follow up with PCP as previously scheduled. Other Amb Orders: Wound Care Instructions Location: Determined By Patient - Follow up Plan Follow up with: Zach Will MD [Physician] - 05/16/17 2:20 pm (Wound Care) Coco Morel MD [Primary Care Provider] - Jeff Drummond ARNP [Physician] - Disposition: Home, Self-Care Prognosis: Fair Rehab Potential: Fair I certify that the patient requires SNF services: No Overall status at discharge: patient is progressing back to baseline Medical - DS: Qual - VTE Deep Vein Thrombosis/Pulmonary Embolism Present on Admission: No
== END 2017-05-09 15:46 | disposition home or self-care (01) | DRG 854 ==
LOC: ED 15:08 → MEDSUR 19:00
PROVIDERS: ADMIT Internal Medicine; ATTEND Internal Medicine